=== PATIENT | female | born 1940 | race Caucasian/White ===

== ENCOUNTER → 2016-10-17 | Outpatient (CLI) | payer MEDICARE, OTHER ==
[~2016-10-17] MED LIST: ALPR.5T PO; ALPR0.5T PO; ASP325T PO; CEFD300C3 PO; CLIN-81 PO; CLPD75T PO; CPR500T PO; DEXL60CA5 PO; FURO40TA4 PO; HYDR-2890 PO; HYDR-3454 PO; HYDR-3714 PO; HYDR1TAB PO; LORA1TAB PO; MTR500T PO; ONDA4TAB8 PO; ONDN4T PO; PNT40TEC PO; POTA20TA15 PO; RABE20TA PO; RAMI10TA PO; RECLAST IV; RNT150T PO; ROSU5TAB PO; TRIMETHOBENZAMIDE PO; ZLP10T PO; [UNRECOGNIZED DRUG - CODE]
--- OUTSIDE RECORDS SUMMARY | 2016-10-17 10:54 | XMS REPORT | Continuity of Care Document ---
Author Author [facility] Organization [facility] Address Unknown Phone Unavailable Care Team Providers Care Production Planning Manager Name Role Phone David Jovel PCP [phone] Source Comments Some departments are not documenting in the electronic medical record. If you do not see the information that you expected, contact Release of Information in the Health Information Management department at [phone] for further assistance in locating additional records.[facility] Active Allergies and Adverse Reactions Allergen Noted Date Severity Reactions Comments Aggrenox 04/27/2015 High ANAPHYLAXIS Biaxin 04/27/2015 High ANAPHYLAXIS Compazine 04/27/2015 High ANAPHYLAXIS Reglan 04/27/2015 High ANAPHYLAXIS Current Medications Prescription Sig. Disp. Refills Start End Date Status Date albuterol-ipratropium Inhale 3 mL solution as Active (DUONEB) 0.5 mg-3 mg(2.5 directed four times mg base)/3 mL nebulizer daily. solution fluticasone (FLONASE) 50 Apply 2 Sprays to each Active mcg/actuation nasal spray nostril as directed daily. ALBUTEROL SULFATE (PROAIR Inhale by mouth. Active HFA IN) montelukast (SINGULAIR) Take 10 mg by mouth at Active 10 mg tablet bedtime daily. budesonide/formoterol Inhale 2 Puffs by mouth Active (SYMBICORT) 160/4.5 mcg twice daily. HFAA inhalation cetirizine (ZYRTEC) 10 mg Take 10 mg by mouth Active tablet daily. predniSONE (DELTASONE) 10 Take 10 mg by mouth Active mg tablet daily. ramipril (ALTACE) 10 mg Take 10 mg by mouth Active capsule daily. zolpidem (AMBIEN) 10 mg Take 10 mg by mouth at Active tablet bedtime as needed for Sleep. LORazepam (ATIVAN) 1 mg Take 1 mg by mouth every Active tablet 4 hours as needed for Nausea, Vomiting or Other.... rosuvastatin (CRESTOR) 5 Take 5 mg by mouth daily. Active mg tablet HYDROcodone/acetaminophen Take 1 Tab by mouth every Active (NORCO; VICODIN) 5-325 mg 4 hours as needed for tablet Pain clopiDOGrel (PLAVIX) 75 Take 75 mg by mouth Active mg tablet daily. pantoprazole DR Take 40 mg by mouth Active (PROTONIX) 40 mg tablet daily. zoledronic Administer 5 mg through Active acid/mannitol/water vein. (RECLAST) soln IVPB ALPRAZolam (XANAX) 0.5 mg Take 0.5 mg by mouth at Active tablet bedtime as needed. aspirin 325 mg tablet Take 325 mg by mouth Active daily. Active Problems Problem Noted Date Bronchiectasis (HCC) 05/01/2015 Lung disease, restrictive 05/01/2015 Social History Tobacco Use Types Packs/Day Years Used Date Never Smoker Smokeless Tobacco: Never Used Alcohol Use Drinks/Week oz/Week Comments No Last Filed Vital Signs Vital Sign Reading Time Taken Blood Pressure 106/61 05/01/2015 1:03 PM CDT Pulse 81 05/01/2015 1:03 PM CDT Temperature 36.7 C (98 F) 05/01/2015 1:03 PM CDT Respiratory Rate 16 05/01/2015 1:03 PM CDT Height 1.549 m (5' 1") 05/01/2015 1:03 PM CDT Weight 96.798 kg (213 lb 6.4 oz) 05/01/2015 1:03 PM CDT Body Mass Index 40.34 05/01/2015 1:03 PM CDT Oxygen Saturation 95% 05/01/2015 1:03 PM CDT Plan of Care Health Maintenance Due Date Last Done Comments Physical (Comprehensive) 1947 Exam Pertussis Vaccine 1953 Tetanus Vaccine 12/21/1959 Breast Cancer Screening 1982 Colorectal Cancer 1992 Screening Shingles Vaccine 2002 Osteoporosis Screening 12/21/2007 Prevnar/Pneumovax (#1) 12/21/2007 Influenza Vaccine 04/03/2016 Results from Last 3 Months Not on file
--- NOTE | 2016-10-17 11:45 | Diagnostic Imaging Report ---
3 views of the right ribs. INDICATION: Right rib pain. FINDINGS: No rib fracture is identified. There is subsegmental infiltrate and atelectasis in the right lung base. IMPRESSION: Subsegmental right basilar infiltrates and/or atelectasis. Dictated by: Dictated on workstation # [id number]
== END ==
LOC: RAD 10:50
PROVIDERS: ATTEND Nurse Practitioner Family
DX: R07.81 Pleurodynia (principal); R91.8 Other nonspecific abnormal finding of lung field
CPT/HCPCS: 71100

== ENCOUNTER → 2016-12-19 | Outpatient (CLI) | payer MEDICARE, OTHER ==
--- NOTE | 2016-12-19 11:58 | Diagnostic Imaging Report ---
PROCEDURE: MRI right joint lower extremity without contrast. TECHNIQUE: Multiplanar, multisequence non contrast-enhanced MRI of the right lower extremity was accomplished. INDICATION: Right knee pain. Please note that the dedicated knee coil did not fit the patient due to the knee size and an alternate larger coil was used. This would decrease the resolution on the images. FINDINGS: There is a tiny joint effusion. Small amount of fluid anterior to the patellar tendon is likely secondary to mild superficial prepatellar bursitis. The extensor mechanism is intact. The ACL and PCL are intact. No definite meniscus tear is seen. The MCL is slightly thickened probably related to old injury. The lateral collateral ligament complex components appear intact. There is no Louie's cyst. The muscle signal and bulk around the knee appear unremarkable. No significant bone marrow signal abnormality is noted. The articular cartilage demonstrates mild thinning in the lateral compartment and minimal thinning in the medial compartment. No significant cartilage thinning in the patellofemoral compartments. IMPRESSION: Tiny joint effusion. Suggestion of superficial infrapatellar bursitis. Dictated by: Dictated on workstation # [id number]
== END ==
LOC: RAD 09:41
PROVIDERS: ATTEND Family Medicine
DX: M79.0 Rheumatism, unspecified (principal)
CPT/HCPCS: 73721

== ENCOUNTER → 2017-03-16 | Outpatient (CLI) | payer MEDICARE, OTHER ==
--- NOTE | 2017-03-16 11:30 | Diagnostic Imaging Report ---
INDICATION: Right sciatica. Lumbar spine. AP lateral views of lumbar spine show normal vertebral body alignment. There is very slight scoliotic curvature of the upper lumbar spine convex the right. No compression fractures. There is disc space during at L1-L2, L2-L3 and L3-L4 and L5-S1. There are osteophyte forming at L1-L2, L2-L3, L3-L4. IMPRESSION: There are degenerative changes present in the lumbar spine. There are no acute abnormalities seen. Dictated by: Dictated on workstation # [id number]
== END ==
LOC: RAD 10:33
PROVIDERS: ATTEND Nurse Practitioner Family
DX: M47.816 Spondylosis without myelopathy or radiculopathy, lumbar region (principal)
CPT/HCPCS: 72100

== ENCOUNTER → 2017-03-23 | Outpatient (CLI) | payer MEDICARE, OTHER | LOC: RAD 12:24 | PROVIDERS: ATTEND Nurse Practitioner | DX: M23.321 Other meniscus derangements, posterior horn of medial meniscus, right knee (principal) ==

== ENCOUNTER → 2017-03-27 | Outpatient (CLI) | payer MEDICARE, OTHER ==
[~2017-03-27] MED LIST changes: +PRD20T PO
--- NOTE | 2017-03-27 10:02 | Diagnostic Imaging Report ---
EXAMINATION: Magnetic resonance imaging of the right knee without intravenous contrast DATE: 03/27/2017. COMPARISON: None. INDICATION: Right anterior knee pain. No history of trauma. TECHNIQUE: Multiplanar, multisequence non contrast enhanced MR imaging was accomplished. FINDINGS: MENISCI: There is some increased signal in the posterior horn of the medial meniscus consistent with mucoid degeneration. No definite meniscal tear demonstrated. The lateral meniscus is intact. LIGAMENTS AND TENDONS: The anterior and posterior cruciate ligaments are intact. The medial collateral ligament is intact. The iliotibial band, mid third lateral capsular ligament, fibular collateral ligament, biceps femoris tendon and conjoined tendon are intact. The quadriceps tendon and patella ligament are intact. JOINT: The articular cartilage surfaces are intact. Patellofemoral joint is in good alignment with good preservation of the articulating surfaces. The medial and lateral retinaculum are intact. There is a small joint effusion present. BONE: There is unremarkable bone marrow signal.Specifically, negative for fracture, osteomyelitis, osteonecrosis, or marrow replacing process. BURSAE AND SOFT TISSUES: No Bakers cyst. IMPRESSION: 1. There is small joint effusion present. 2. Mucoid degenerative changes noted in the posterior horn of the medial meniscus with no definite tear to the articulating surface though small tear cannot be excluded. 3. The patellofemoral joint appears normal. Dictated by: Dictated on workstation # [id number]
== END ==
LOC: RAD 08:17
PROVIDERS: ATTEND Nurse Practitioner
DX: M23.231 Derangement of other medial meniscus due to old tear or injury, right knee (principal); M25.461 Effusion, right knee
CPT/HCPCS: 73721

== ENCOUNTER 2017-05-25 09:26 | Emergency (ER) | payer MEDICARE, OTHER ==
[~2017-05-25] VITALS: Ht 152.4 cm; Wt 93.0 kg
[~2017-05-25 09:26] MED LIST changes: -PRD20T PO
--- NOTE | 2017-05-25 10:10 | ED Neurological Problem ---
General Chief Complaint: Neurological Problems Stated Complaint: HANDS NUMB,DIZZY Nursing Triage Note: c/o numbness in both hands. Right hand is worse than left. Onet 0400 yesterday morning. ROWLAND present but has headaches every other day chronically. Right lateral neck pain that is worse with movement reported. Nursing Sepsis Screen: No Definite Risk Source: patient Exam Limitations: no limitations History of Present Illness Time seen by provider: 10:00 Initial Comments Here with report of numbness to the hands with right hand being worse than the left. Started yesterday. She also has a headache that she has pretty much every other day or she states 15 days out of the month. This is an ongoing issue. Also is complaining of some mid neck pain and left shoulder pain. These are chronic as well but seemed to be worse. Denies any recent injury. Does have history of stroke and is on Plavix and aspirin. Does have multiple areas of degeneration in her spine and joints. Timing/Duration: 24 hours, constant Severity: mild Associated Symptoms: No confusion, No fever/chills, No muscle spasms, No numbness in legs/feet, paresthesia, No weakness Allergies and Home Medications Allergies Coded Allergies: prochlorperazine (Unverified Allergy, Unknown, 06/23/14) aspirin (Unverified Adverse Reaction, Unknown, 06/23/14) MIGRAINES clarithromycin (Unverified Adverse Reaction, Unknown, 06/23/14) VOMITING dipyridamole (Unverified Adverse Reaction, Unknown, 06/23/14) MIGRAINES metoclopramide HCl (Unverified Adverse Reaction, Unknown, 06/23/14) "JUMPY" Home Medications Alprazolam 0.5 Mg Tablet, 0.5 MG PO Q8H, (Reported) Aspirin 325 Mg Tablet, 325 MG PO DAILY, (Reported) Clopidogrel 75 Mg Tablet, 75 MG PO DAILY, (Reported) Furosemide 40 Mg Tablet, 1 EACH PO DAILY, (Reported) PATIENT TAKES PRN "WHEN I HAVE EXTRA FLUID" PATIENT TAKES WITH POTASSIUM 40MEQ Hydrocodone Bit/Acetaminophen 1 Each Tablet, 1 EACH PO Q8H PRN for MIGRAINE, ( Reported) Lorazepam 1 Mg Tab, 1 MG PO Q8H, (Reported) Ondansetron Hcl 4 Mg Tab, 4 MG PO Q6H PRN for MIGRAINE, (Reported) Pantoprazole Sod 40 Mg Tab, 40 MG PO BID, (Reported) Potassium Chloride 20 Meq Tab.prt.sr, 40 MEQ PO DAILY, (Reported) PATIENT TAKES PRN WITH LASIX Ramipril 10 Mg Tablet, 10 MG PO DAILY, (Reported) Rosuvastatin Calcium 5 Mg Tablet, 5 MG PO EVERY OTHER DAY, (Reported) Zolpidem Tartrate 10 Mg Tab, 10 MG PO HS PRN for SLEEP, (Reported) [Reclast] , 5 MG IV YEARLY, (Reported) [Trimethobenz] , 300 MG PO BID-TID PRN for MIGRAINE, (Reported) TAKE 2 TO 3 TIMES DAILY NEEDED FOR MIGRAINE Constitutional: see HPI, No chills, No fever Eyes: No Symptoms Reported Ears, Nose, Mouth, Throat: no symptoms reported Respiratory: no symptoms reported Cardiovascular: no symptoms reported Gastrointestinal: no symptoms reported Musculoskeletal: joint pain, neck pain Skin: No change in color Psychiatric/Neurological: Headache, Numbness, Denies Weakness All Other Systems Reviewed Negative Unless Noted: Yes Past Xplfnge-Xbdnrg-Ioctof Hx Patient Social History Alcohol Use: Denies Use Recreational Drug Use: No Smoking Status: Never a Smoker Recent Foreign Travel: No Contact w/Someone Who Travel: No Recent Infectious Disease Expo: No Immunizations Up To Date Tetanus Booster (TDap): Less than 5yrs Date of Pneumonia Vaccine: Sep 03, 2011 Surgeries History of Surgeries: Yes Respiratory History of Respiratory Disorde: Yes (pneumonia) Respiratory Disorders: Pneumonia Cardiovascular History of Cardiac Disorders: No Neurological History of Neurological Disord: Yes (stroke) Reproductive System Hx Reproductive Disorders: No Sexually Transmitted Disease: No HIV/AIDS: No Female Reproductive Disorders: Denies Genitourinary Genitourinary Disorders: UTI-Chronic Gastrointestinal History of Gastrointestinal Di: Yes (spastic bowel, diverticulitis, infective colitis Mar 2014) Musculoskeletal History of Musculoskeletal Dis: No Musculoskeletal Disorders: Osteoporosis Endocrine History of Endocrine Disorders: No Cancer History of Cancer: No Psychosocial History of Psychiatric Problem: No Integumentary History of Skin or Integumenta: No Blood Transfusions History of Blood Disorders: No Adverse Reaction to a Blood Tr: No Reviewed Nursing Assessment Reviewed/Agree w Nursing PMH: Yes Family Medical History Family Medial History: Asthma G8 SISTER Diabetes mellitus 19 FATHER FH: COPD (chronic obstructive pulmonary disease) 19 FATHER G8 BROTHER Hypertension 19 MOTHER G8 BROTHER G8 SISTER Thyroid disease G8 BROTHER Physical Exam Vital Signs Vital Sign - Last 12Hours 05/25/17 09:44 Temp 98.1 Pulse 70 Resp 16 B/P (MAP) 164/89 O2 Delivery Room Air Capillary Refill : Less Than 3 Seconds General Appearance: WD/WN, no apparent distress HEENT: PERRL/EOMI, pharynx normal Neck: full range of motion, supple, No tender lateral, No tender midline Respiratory: lungs clear, normal breath sounds Cardiovascular: regular rate, rhythm, no murmur Gastrointestinal: non tender, soft Back: normal inspection, no CVA tenderness, no vertebral tenderness Extremities: normal range of motion, other (tenderness to the lateral aspect of the left shoulder. 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 Full range of motion of both hands and wrists.) Neurologic/Psychiatric: alert, oriented x 3 Crainal Nerves: normal hearing, normal speech, PERRL Coordination/Gait: normal gait Motor/Sensory: no motor deficit, sensory deficit (reports decreased sensation to the hand as a hole on the right versus the left. No other sensation deficits noted on exam to the upper extremities, shoulders or neck.) Skin: normal color, warm/dry Progress/Results/Core Measures Results/Orders My Orders Orders - BA YANEZ MD Ct Head/Cervical Spine Wo (05/25/17 10:08) Vital Signs/I&O Vital Sign - Last 12Hours 05/25/17 09:44 Temp 98.1 Pulse 70 Resp 16 B/P (MAP) 164/89 O2 Delivery Room Air Blood Pressure Mean: 114 Progress Note : Progress Note Seen and evaluated. Findings more specific to Hand location but we will evaluate CT of neck given patient's history of degenerative disease. Due to frequent headaches, we will get CT of the head. This was discussed with the patient and she agrees. Monitor patient. 1055: CT results reviewed. Discussed with the patient. We will initiate wrist splint to the right and start her on prednisone for 5 days. She'll follow-up with her primary care physician for further evaluation. Discharged home with return precautions. Patient verbalize understanding instructions and agreement with plan. Diagnostic Imaging Diagonstic Imaging: CT Plain Films/CT/US/NM/MRI: c-spine, head Comments NAME: ALCIDES [facility] REC#: [id number] PT STATUS: REG ER : 1940 PHYSICIAN: BA YANEZ MD ADMIT DATE: 05/25/17/ER Draft Date of Exam:05/25/17 CT HEAD/CERVICAL SPINE WO PROCEDURE: CT head and CT cervical spine without contrast. TECHNIQUE: Multiple contiguous axial images were obtained through the brain and cervical spine without the use of intravenous contrast. Sagittal and coronal reformations through the cervical spine were then performed. INDICATION: Headache, neck pain. FINDINGS: CT head: There is no intracranial hemorrhage, brain edema, or mass effect. There is left periventricular centrum semiovale area of encephalomalacia suggestive of an old infarct. Background periventricular and deep white hypodensities compatible with chronic microvascular ischemic changes also seen. There is no hydrocephalus. No extra-axial fluid collection seen. The calvarium, the paranasal sinuses, and orbits visualized portions appear grossly unremarkable. CT cervical spine: The alignment of the posterior spinal line is satisfactory. There is reversal of the lordotic curvature likely positional. There is satisfactory alignment of the lateral masses of C1 and C2 and atlantooccipital joints. No widening of the predental space. The vertebral body heights are preserved. Along the posterior central aspect of C6 vertebral body there is posterior osteophyte formation which could relate to old injury or ossification of the posterior longitudinal ligament. This does not appear to significantly narrow the spinal canal however. There are posterior osteophytes at C5-C6 level and uncovertebral joint hypertrophy seen bilaterally. No significant foraminal stenosis seen at any level. No aggressive osseous lesion or bone destruction identified. The prevertebral soft tissues appear unremarkable. IMPRESSION: CT head: Chronic white matter ischemic changes. No intracranial hemorrhage. CT cervical spine: Degenerative changes at C5-C6 level. Dictated on workstation # [id number] Dict: 05/25/17 1042 Trans: 05/25/17 1053 YOANNA [id number] Interpreted by: NEHA ARIAS MD Electronically signed by: Departure Impression Impression: Primary Impression: Numbness of right hand Disposition: 01 HOME, SELF-CARE Condition: Stable Departure-Patient Inst. Decision time for Depature: 11:01 Referrals: LINDA SPEARS MD (PCP/Family) Primary Care Physician Patient Instructions: Carpal Tunnel Syndrome (DC) Add. Discharge Instructions: All discharge instructions reviewed with patient and/or family. Voiced understanding. Follow-up with your Dr. in a few days for recheck. Return for worse pain, weakness, numbness, or other concerns as needed. Take medications as directed. Scripts Prednisone (Prednisone) 20 Mg Tab 40 MG PO DAILY, #10 TAB 0 Refills Prov: BA YANEZ MD 05/25/17 BA YANEZ MD May 25, 2017 10:10
--- NOTE | 2017-05-25 10:53 | Diagnostic Imaging Report ---
PROCEDURE: CT head and CT cervical spine without contrast. TECHNIQUE: Multiple contiguous axial images were obtained through the brain and cervical spine without the use of intravenous contrast. Sagittal and coronal reformations through the cervical spine were then performed. INDICATION: Headache, neck pain. FINDINGS: CT head: There is no intracranial hemorrhage, brain edema, or mass effect. There is left periventricular centrum semiovale area of encephalomalacia suggestive of an old infarct. Background periventricular and deep white hypodensities compatible with chronic microvascular ischemic changes also seen. There is no hydrocephalus. No extra-axial fluid collection seen. The calvarium, the paranasal sinuses, and orbits visualized portions appear grossly unremarkable. CT cervical spine: The alignment of the posterior spinal line is satisfactory. There is reversal of the lordotic curvature likely positional. There is satisfactory alignment of the lateral masses of C1 and C2 and atlantooccipital joints. No widening of the predental space. The vertebral body heights are preserved. Along the posterior central aspect of C6 vertebral body there is posterior osteophyte formation which could relate to old injury or ossification of the posterior longitudinal ligament. This does not appear to significantly narrow the spinal canal however. There are posterior osteophytes at C5-C6 level and uncovertebral joint hypertrophy seen bilaterally. No significant foraminal stenosis seen at any level. No aggressive osseous lesion or bone destruction identified. The prevertebral soft tissues appear unremarkable. IMPRESSION: CT head: Chronic white matter ischemic changes. No intracranial hemorrhage. CT cervical spine: Degenerative changes at C5-C6 level. Dictated by: Dictated on workstation # [id number]
[2017-05-25] MEDS ORDERED: PRD20T PO (11:02)
[2017-05-25 11:10] VITALS: BP 152/80
== END 2017-05-25 11:10 | disposition home or self-care (01) ==
LOC: EDUNIT# 09:26 → ER 09:28
DX: N20.2 Calculus of kidney with calculus of ureter (principal); M81.0 Age-related osteoporosis without current pathological fracture; Z79.82 Long term (current) use of aspirin; Z87.01 Personal history of pneumonia (recurrent); Z86.73 Personal history of transient ischemic attack (TIA), and cerebral infarction without residual deficits; Z87.19 Personal history of other diseases of the digestive system
CPT/HCPCS: 70450; 72125; 99283

== ENCOUNTER 2017-10-28 08:39 | Outpatient (CLI) | payer MEDICARE, OTHER ==
[~2017-10-28] VITALS: Ht 152.4 cm; Wt 93.0 kg
[~2017-10-28 08:39] MED LIST changes: +PRD20T PO
[2017-10-28] MEDS ORDERED: ASPI-933 PO (08:58)
[2017-10-28] MEDS ORDERED: RAMI10CA35 PO (08:58)
[2017-10-28] MEDS ORDERED: ONDA4TAB11 PO (08:58)
[2017-10-28] MEDS ORDERED: TRAZ-28 PO (08:58)
[2017-10-28] MEDS ORDERED: MONT10TA24 PO (08:58)
[2017-10-28] MEDS ORDERED: CARV25TA PO (08:58)
[2017-10-28] MEDS ORDERED: PANT40TA3 PO (08:58)
[2017-10-28] MEDS ORDERED: ALPR0.5T7 PO (08:58)
[2017-10-28] MEDS ORDERED: CETI10TA17 PO (08:58)
[2017-10-28] MEDS ORDERED: CLOP75TA28 PO (08:58)
[2017-10-28] MEDS ORDERED: TIOT4MIS5 IH (09:03)
[2017-10-28] MEDS ORDERED: BUDE10.2 IH (09:03)
[2017-10-28 09:07] VITALS: BP 149/85
== END 2017-10-28 10:34 | disposition home or self-care (01) ==
LOC: PREOP 08:39
PROVIDERS: ATTEND Orthopaedic Surgery
DX: Z01.818 Encounter for other preprocedural examination (principal); Z11.2 Encounter for screening for other bacterial diseases; M23.203 Derangement of unspecified medial meniscus due to old tear or injury, right knee; M94.261 Chondromalacia, right knee
CPT/HCPCS: 87081

== ENCOUNTER 2017-11-04 07:22 | Day surgery (SDC) | payer MEDICARE, OTHER ==
--- NOTE | 2017-10-26 12:56 | HISTORY AND PHYSICAL ---
DATE OF SERVICE: 11/04/2017 ADMISSION HISTORY AND PHYSICAL DATE OF ADMISSION: 11/04/2017 REASON FOR ADMISSION: This will be for preadmission history and physical for outpatient surgery on 11/04/2017 for right knee arthroscopy. HISTORY OF PRESENT ILLNESS: The patient is a 76-year-old female with progressively worsening right knee pain, catching, locking and swelling. She has undergone treatment with injections, physical therapy, activity modifications and anti-inflammatories without relief. 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 She reports functional impairment and due to failure to improve with conservative measures, the patient has elected to proceed with surgical intervention. REVIEW OF SYSTEMS: No chest pain. No shortness of breath. No dysuria. PAST MEDICAL HISTORY: Allergic rhinitis, hypertension pharyngitis, tachycardia. PAST SURGICAL HISTORY: Cervical polyp excision, breast lump excision. SOCIAL HISTORY: The patient denies alcohol use. She denies tobacco use. FAMILY HISTORY: Significant for asthma, diabetes. PRIMARY CARE PROVIDER: David Jovel MD MEDICATIONS: Toprol, Plavix, Altace, Protonix, Zyrtec, Singulair, calcium, Symbicort, Xanax, Vicodin, Zofran, ProAir, Flonase, Ambien, aspirin, hydrocodone. ALLERGIES: To SULFA. PHYSICAL EXAMINATION: GENERAL: The patient is well-developed, well-nourished, in no acute distress. HEENT: Normocephalic, atraumatic. Pupils are equal, round, reactive. Oropharynx is clear. NECK: Supple with no lymphadenopathy. LUNGS: Clear to auscultation bilaterally. HEART: Regular rate and rhythm. ABDOMEN: Soft, nontender, nondistended. EXTREMITIES: The right knee demonstrates a moderate effusion. She has patellofemoral crepitus and pain with patellar loading. She ambulates with an antalgic gait. She is tender along the medial joint line and has pain medially with Shelli's. No varus valgus laxity. Negative anterior and posterior drawer. 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 PLAN: Right knee arthroscopy, partial medial meniscectomy and chondroplasty. The risks, benefits, options, ramifications and recovery have been discussed at length with the patient. She understands and wishes to proceed. Job ID: [id number] DocumentID: [id number] Dictated Date: 10/26/2017 11:38:27 Pest Management Supervisor Date: 10/26/2017 12:55:49 Dictated By: CLINT BEST MD
[~2017-11-04] VITALS: Ht 152.4 cm; Wt 93.0 kg
[2017-11-04 07:22] VITALS: BP 187/83
[~2017-11-04 07:22] MED LIST changes: +ALPR0.5T7 PO; +ASPI-933 PO; +BUDE10.2 IH; +CARV25TA PO; +CETI10TA17 PO; +CLOP75TA28 PO; +MONT10TA24 PO; +ONDA4TAB11 PO; +PANT40TA3 PO; +RAMI10CA35 PO; +TIOT4MIS5 IH; +TRAZ-28 PO
[2017-11-04] MEDS ORDERED: LACTATED RINGERS 1,000 ML IV PRN ×2 (07:27→07:55)
[2017-11-04] MEDS ORDERED: ceFAZolin INJECTION 1,000 MG in NS (IVPB) 100 ML IV ONE (07:30)
[2017-11-04] MEDS ORDERED: morphine PF (DURAMORPH) 10 MG/10 ML AMP ONE (07:57)
[2017-11-04] MEDS ORDERED: BUPIVACAINE 0.25% 30 ML (SENSORCAINE) VIAL ONE (07:57)
[2017-11-04] MEDS ORDERED: MIDAZOLAM 2 MG/2 ML (VERSED) VIAL IV ONE (08:00)
[2017-11-04] MEDS ORDERED: ONDANSETRON 4 MG/2 ML (SDV) Z0FRAN IV ONE (08:00)
[2017-11-04] MEDS ORDERED: FAMOTIDINE 20MG/2ML IV (PEPCID) ONE (08:09)
[2017-11-04] MEDS ORDERED: proPOfol 200 MG/20 ML (DIPRIVAN) VIAL IV ONE (08:23)
[2017-11-04] MEDS ORDERED: DEXAMETHASONE 10 MG/ML (DECADRON) 1 ML VIAL ONE (08:23)
[2017-11-04] MEDS ORDERED: ONDANSETRON 4 MG/2 ML (SDV) Z0FRAN ONE (08:23)
[2017-11-04] MEDS ORDERED: LIDOCAINE PF 2% 5 ML (XYLOCAINE) VIAL ONE (08:23)
[2017-11-04] MEDS ORDERED: fentaNYL INJECTION 100 MCG/2 ML AMP ONE (08:24)
[2017-11-04] MEDS ORDERED: MIDAZOLAM 2 MG/2 ML (VERSED) VIAL ONE (08:25)
--- NOTE | 2017-11-04 09:31 | Progress Note-Pre Operative ---
Pre-Operative Progress Note H&P Reviewed The H&P was reviewed, patient examined and no changes noted. Date Seen by Provider: Nov 04, 2017 Time Seen by Provider: : Date H&P Reviewed: Nov 04, 2017 Time H&P Reviewed: : Pre-Operative Diagnosis: right knee medial meniscus tear and chondromalacia CLINT BEST MD Nov 04, 2017 09:31
--- NOTE | 2017-11-04 09:32 | Progress Note-Post Operative ---
Post-Operative Progess Note Surgeon (s)/Vending Stand Supervisor (s) Surgeon CLINT BEST MD Vending Stand Supervisor: Zoran Garcia Pre-Operative Diagnosis right knee medial meniscus tear and chondromalacia Post-Operative Diagnosis right knee medial and lateral meniscus tears and chondromalacia of the medial femoral condyle Procedure & Operative Findings Date of Procedure 11/04/17 Procedure Performed/Findings right knee arthroscopic partial medial and lateral meniscectomies and chondroplasty of the medial femoral condyle Anesthesia Type GETA Estimated Blood Loss Estimated blood loss (mL): minimal Specimens/Packing Specimens Removed none Packing: none CLINT BEST MD Nov 04, 2017 09:32
[2017-11-04] MEDS ORDERED: SEVOFLURANE (ULTANE) 15 ML INHAL SOLN ONE (09:37)
[2017-11-04] MEDS ORDERED: HYDROcodone/APAP 7.5 MG/325 MG (LORTAB, LORCET PLUS) TABLET PO PRN ×2 (09:45→12:15)
[2017-11-04] MEDS ORDERED: meTOprolol 5 MG/5 ML (LOPRESSOR) VIAL ONE (10:13)
[2017-11-04] MEDS ORDERED: ONDANSETRON 4 MG/2 ML (SDV) Z0FRAN IVP PRN (10:15)
[2017-11-04] MEDS ORDERED: morphine INJ 10 MG/ML 1ML (SYR OR VIAL) IVP PRN (10:15)
[2017-11-04 11:10] VITALS: BP 161/67
[2017-11-04] MEDS ORDERED: HYDROcodone/APAP 7.5 MG/325 MG (LORTAB, LORCET PLUS) TABLET PO ONE (11:35)
[2017-11-04 11:55] VITALS: BP 158/75
[2017-11-04] MEDS ORDERED: ONDN4T PO (12:36)
[2017-11-04] MEDS ORDERED: HYDR-3816 PO (12:36)
[2017-11-04 12:45] VITALS: BP 147/72
[2017-11-04 13:05] VITALS: BP 147/72
--- NOTE | 2017-11-04 13:15 | OPERATIVE REPORT ---
DATE OF SERVICE: 11/04/2017 PREOPERATIVE DIAGNOSES: 1. Right knee medial meniscal tear. 2. Right knee chondromalacia of the medial femoral condyle. POSTOPERATIVE DIAGNOSES: 1. Right knee medial meniscal tear. 2. Right knee chondromalacia of the medial femoral condyle. 3. Right knee lateral meniscal tear. PROCEDURES: 1. Right knee arthroscopic partial medial meniscectomy. 2. Right knee arthroscopic partial lateral meniscectomy. 3. Right knee arthroscopic chondroplasty of the medial femoral condyle. SURGEON: Luciano Best MD [employer] MANAGER: PARISH Whitehead, who assisted throughout the procedure and closed the incisions. ANESTHESIA: General endotracheal by Brandee Buckner CRNA. TOURNIQUET TIME: Not applicable. ESTIMATED BLOOD LOSS: Minimal. DRAINS: None. COMPLICATIONS: None. POSTOPERATIVE PLAN: Routine arthroscopy protocol. The patient was transferred to the recovery room awake and in stable condition. STATEMENT OF MEDICAL NECESSITY: The patient is a 76-year-old female with complaints of right medial knee pain, catching, locking and swelling. She is tender along the medial joint line. She had tenderness along the medial femoral condyle. She had pain medially with Shelli's. She had tried rest, injections and anti-inflammatories without relief. Due to functional impairment and failure to improve with conservative measures, the patient elected to proceed with surgical intervention. Examination under anesthesia revealed range of motion of 0/0/130 with negative Jace, negative anterior and posterior drawer. No varus valgus laxity, negative pivot shift. Arthroscopic findings, the patella and trochlea demonstrated no gross chondral abnormalities. The medial and lateral gutters were clear. The medial compartment demonstrated a radial tear at the posterior horn/body junction involving approximately 20% of the junction. In addition, there was a grade 2 chondral flap on the central weightbearing portion of the femoral condyle and a 10 x 10 area. The ACL and PCL were intact. The lateral compartment demonstrated a radial tear of the posterior horn involving approximately 30% of the posterior horn of the meniscus. After risks and benefits of procedure were discussed and questions were answered and informed consent was signed and placed on chart, the operative site was confirmed in the preoperative holding area initialed by the surgeon. The patient was transported to the operating room and after adequate levels of general endotracheal anesthetic were obtained, a timeout was called confirming the operative site. An examination under anesthesia was performed with the above findings noted. The right lower extremity was then prepped and draped in the usual sterile fashion. The knee joint was injected with 60 mL of fluid. A standard inferolateral portal was placed with the arthroscope under direct visualization, inferior medial portal was created. The menisci and cruciates were carefully probed with the above findings noted. The unstable chondral flaps on the medial femoral condyle were debrided, shaved back to a stable edge. The posterior horn/body junction was debrided with a shaver and a biter removing approximately 20% of the posterior horn and this was carefully probed with no further tearing or instability noted. The scope was then redirected into the lateral compartment where the lateral meniscal tear was debrided. The shaver and the biter removed approximately one-third of the posterior horn. This was carefully probed with no further tearing or instability noted. The knee was copiously irrigated. Portal sites were closed with 4-0 nylon in simple interrupted fashion. The knee was injected with Duramorph. Portal sites were infiltrated with plain Marcaine. Soft dressing was applied and the patient was transferred to the recovery room awake and in stable condition. Job ID: [id number] DocumentID: [id number] Dictated Date: 11/04/2017 10:04:56 Rn Discharge Date: 11/04/2017 13:14:51 Dictated By: LUCIANO BEST MD
--- NOTE | 2017-11-04 13:34 | Physical Therapy Ortho Eval ---
PT Orthopedic Evaluation Type of Surgery Knee Scope WBAT, right side Prior Level of Function Locomotion (Upon Admit): Independent Established Durable Medical Eq: Front Wheeled Walker, Straight Cane, Crutches Patient states she used a single point cane on occasion. Subjective Subjective Patient in bed pre tx, agrees to PT, has 8/10 pain in her right knee. Entry Into Home: Stairs With Railing Steps Into Home: 3 Objective Objective right knee flexion 60 degrees, extension +5 degrees Motor Control Motor Control: Motor Control WNL Strength NT Transfer Transfers (B, C, W/C) (FIM): 5 Gait Gait Assistive Device: FWW Right Lower Extremity: Right Weight Bearing Status RLE: Weight Bearing/Tolerated Gait (FIM): 5 Distance: 150' Gait Level of Assist: 5 Summary/Comments Patient also went up and down 1 step using a rolling walker with CGA and cues for foot placement. Treatment Rendered Treatment: Therapeutic Exercises, Gait Train, Step Train Exercise Instruction: Quad Sets, Heel Slides, Ankle Pumps Assessment/Goals Goal Time Frame: 1 Visit Plan Treatment Plan: Discharge PT/Family Agrees to Plan: Yes Time Time In: 1200 Time Out: 1220 Total Billed Treatment Time: 20 Billed Treatment Time 1 visit EVL 20' Yes PT/OT Therapy GCodes Therapy Functional Limitation: Physical Therapy Test(s)/Tool used to determine: Level of Assistance Scale Functional Limitation-Current Charge Code: MOBCUR Modifier: CI Functional Limitation-Goal Charge Code: MOBGOAL Modifier: CI Functional Limitation-D/C Charge Codes: MOBDC Modifier: CI ALEJANDRO MOSQUEDA PT Nov 04, 2017 13:34
--- NOTE | 2017-11-04 14:54 | Anesthesia-General Post-Op ---
General Patient Condition Mental Status/LOC: Same as Preop Cardiovascular: Satisfactory Nausea/Vomiting: Absent Respiratory: Satisfactory Pain: Controlled Complications: Absent Post Op Complications Complications None Follow Up Care/Instructions Patient Instructions None needed. Anesthesia/Patient Condition Patient Condition Patient is doing well, no complaints, stable vital signs, no apparent adverse anesthesia problems. No complications reported per nursing. DAVID BUSTAMANTE CRNA Nov 04, 2017 14:54
== END 2017-11-04 13:05 | disposition home or self-care (01) ==
LOC: SDC 07:22
PROVIDERS: ATTEND Orthopaedic Surgery
DX: M23.8X1 Other internal derangements of right knee (principal); M94.261 Chondromalacia, right knee; I10 Essential (primary) hypertension; J30.2 Other seasonal allergic rhinitis; Z79.899 Other long term (current) drug therapy; Z88.2 Allergy status to sulfonamides; Z86.73 Personal history of transient ischemic attack (TIA), and cerebral infarction without residual deficits; F41.9 Anxiety disorder, unspecified

== ENCOUNTER 2017-12-04 19:08 | Emergency (ER) | payer MEDICARE, OTHER ==
[~2017-12-04] VITALS: Ht 154.9 cm; Wt 88.9 kg
[~2017-12-04 19:08] MED LIST changes: +HYDR-3816 PO
[2017-12-04] MEDS ORDERED: RT-ALBUINH IH (19:47)
[2017-12-04] MEDS ORDERED: FLUT9.9S NS (19:47)
[2017-12-04] MEDS ORDERED: KETOROLAC 30 MG/ML VIAL IVP ONE (20:00)
--- NOTE | 2017-12-04 20:05 | ED Lower Extremity ---
General Chief Complaint: Lower Extremity Stated Complaint: R LEG PAIN/SWELLING Nursing Triage Note: Patient c/o right lower extremity pain that began on 11/26/17 and has become progressively worse. She advises she had a knee scope done on 11/04/17 no complications. Pt. also advises that she was seen by Dr. Jelani WATSON on thursday and was given a prescription for bactrim. Nursing Sepsis Screen: No Definite Risk Source: patient Exam Limitations: no limitations History of Present Illness Date Seen by Provider: December 04, 2017 Time Seen by Provider: 19:52 Initial Comments PT ARRIVES VIA POV FROM HOME PT HAD RIGHT KNEE SCOPE WITH REPAIR OF MENISCUS TEARS ON 11/04/[address] BEST SA[address] DR. BEST ON 11/16 AND WAS DOING WELL PT STATES SHE WAS DOING VERY WELL WITH ONLY MINIMAL PAIN AND NO SWELLING, UNTIL 11/26/17 SINCE THEN SHE HAS HAD INCREASED PAIN MOSTLY TO RIGHT KNEE, BUT WITH INCREASED SWELLING ALL AROUND KNEE AND NOW ALSO TO RIGHT LOWER LEG NO INJURY OR UNUSUAL ACTIVITIES HAS BEEN USING A CANE PT TOOK 1 HYDROCODONE AT 0400 THIS AM, SHE COULD NOT SLEEP DUE TO PAIN ATTEMPTED TO FOLLOW UP WITH DR. BEST THIS WEEK , BUT ALREADY HAS SCHEDULED POST OP FOLLOW UP APPOINTMENT ON Thursday12/07/17 SEEN BY INDUSTRIAL COOK AT DR. SPEARS'S ON Thursday12/02/17 AND WAS GIVEN RX FOR BACTRIM PT STATES IT HAS NOT BEEN RED, WARM OR HAD DRAINAGE. PT HAS NOT BEEN RUNNING FEVER NO CHEST PAIN OR SHORTNESS OF BREATH HAS SOME SLIGHT SWELLING TO LEFT LOWER LEG, BUT NO PAIN ON LEFT. NO PARESTHESIAS OR MOTOR DEFICITS PT STATES ICE TO AREA CAUSES SEVERE PAIN PT TAKES PLAVIX + ASPIRIN FOR HISTORY OF CVA PCP: DR. SPEARS ORTHOPEDIC SURGEON: DR. BEST Allergies and Home Medications Allergies Coded Allergies: prochlorperazine (Unverified Allergy, Mild, JITTERS/AGITATION, 10/28/17) aspirin (Unverified Adverse Reaction, Mild, MIGRAINES, 10/28/17) clarithromycin (Unverified Adverse Reaction, Mild, VOMITING, 10/28/17) dipyridamole (Unverified Adverse Reaction, Mild, MIGRAINES, 10/28/17) metoclopramide HCl (Unverified Adverse Reaction, Mild, JITTERS/AGITATION, 10/28/17) "JUMPY" Home Medications Albuterol Sulfate 1 Puff Puff, 2 PUFF IH Q4H, (Reported) 1 PUFF = 90 MCG Alprazolam 0.5 Mg Tablet, 0.5 MG PO DAILY, (Reported) Aspirin 81 Mg Tablet.dr, 81 MG PO DAILY, (Reported) Budesonide/Formoterol Fumarate 10.2 Gm Hfa.aer.ad, 2 PUFF IH BID, (Reported) Carvedilol 25 Mg Tablet, 6.25-25 MG PO BID, (Reported) TAKES BETWEEN 6.25-25MG BID DEPENDING ON BLOOD PRESSURE. SOMETIMES DOESNT TAKE ANY AT ALL. Cetirizine HCl 10 Mg Tablet, 10 MG PO DAILY, (Reported) Clopidogrel Bisulfate 75 Mg Tablet, 75 MG PO DAILY, (Reported) Fluticasone Propionate 9.9 Ml [place].susp, 1 SPRAY NS DAILY, (Reported) 1 SPRAY EACH NARE DAILY Montelukast Sodium 10 Mg Tablet, 10 MG PO DAILY, (Reported) Ondansetron 4 Mg Tab.rapdis, 4 MG PO Q8H PRN for NAUSEA/VOMITING-1ST LINE, ( Reported) Pantoprazole Sodium 40 Mg Tablet.dr, 40 MG PO BID, (Reported) Ramipril 10 Mg Capsule, 10 MG PO DAILY, (Reported) Tiotropium [place] 4 Gm Mist.inhal, 1 PUFF IH BID, (Reported) Trazodone HCl 50 Mg Tablet, 100 MG PO HS, (Reported) Patient Home Medication List Home Medication List Reviewed: Yes Constitutional: no symptoms reported; No fever Respiratory: no symptoms reported Cardiovascular: see HPI, edema Gastrointestinal: no symptoms reported Genitourinary: no symptoms reported Musculoskeletal: see HPI Skin: no symptoms reported Psychiatric/Neurological: No Symptoms Reported; Denies Numbness, Denies Paresthesia, Denies Tingling Past Ffrvbty-Goehhk-Piwsyj Hx Patient Social History Alcohol Use: Denies Use Recreational Drug Use: No Smoking Status: Never a Smoker Recent Foreign Travel: No Contact w/Someone Who Travel: No Recent Infectious Disease Expo: No Recent Hopitalizations: No Physical Abuse: No Sexual Abuse: No Immunizations Up To Date Tetanus Booster (TDap): Less than 5yrs Date of Pneumonia Vaccine: Mar 10, 2016 Date of Influenza Vaccine: May 18, 2017 Seasonal Allergies Seasonal Allergies: Yes Past Medical History Surgeries: Yes (FX LEFT ARM, RIGHT KNEE ARTHROSCOPY 1993 AND 11/04/17 BY ) Section, Gallbladder, Orthopedic, Tonsillectomy Respiratory: Yes (PNEUMONIA) Chronic Bronchitis Cardiac: Yes Hypertension Neurological: Yes Neuropathy, Stroke Reproductive Disorders: No Female Reproductive Disorders: Denies Sexually Transmitted Disease: No HIV/AIDS: No UTI-Chronic Gastrointestinal: Yes (spastic bowel) Chronic Diarrhea, Polyps Musculoskeletal: No Osteoporosis Endocrine: No Loss of Vision: Bilateral Hearing Impairment: Denies Cancer: No Psychosocial: Yes (WITH MIGRAINES) Anxiety Nursing Suicide Risk Score: 0 Integumentary: Yes ( A CHILD) Eczema Blood Disorders: No Adverse Reaction/Blood Tranf: No (N/A) Family Medical History Asthma G8 SISTER Diabetes mellitus 19 FATHER FH: COPD (chronic obstructive pulmonary disease) 19 FATHER G8 BROTHER Hypertension 19 MOTHER G8 BROTHER G8 SISTER Thyroid disease G8 BROTHER Physical Exam Vital Signs Vital Signs - First Documented 12/04/17 19:38 Temp 97.8 Pulse 70 Resp 14 B/P (MAP) 191/98 (129) Pulse Ox 98 O2 Delivery Room Air Capillary Refill : Less Than 3 Seconds General Appearance: no apparent distress, obese Cardiovascular: normal peripheral pulses, regular rate, rhythm, no murmur Respiratory: normal breath sounds Hips: bilateral hip normal inspection Legs: bilateral leg other (MODERATE SWELLING TO RIGHT KNEE AND PROXIMAL HALF OF RIGHT LOWER LEG. NO SWELLING TO RIGHT ANKLE OR FOOT. TRACE EDEMA TO LEFT LOWER LEG. MODERTATE TENDERNESS TO PALPATION OF RIGHT KNEE, AND MINIMAL ROM DUE TO PAIN, UNABLE TO ASSESS LIGAMENT LAXITY DUE TO PAIN AND SWELLING. DISTAL MOTOR/SENSORY/VASCULAR INTACT. SURGICAL SITES ARE WELL HEALED WITH NO SIGNS OF INFECTION) Ankles: bilateral ankle normal inspection Feet: bilateral foot normal inspection Neurologic/Tendon: normal sensation, normal motor functions, normal tendon functions Neurologic/Psychiatric: access liaison II-XII nml as tested, no motor/sensory deficits, alert, normal mood/affect, oriented x 3 Skin: normal color, warm/dry; No ecchymosis Progress/Results/Core Measures Results/Orders Lab Results Laboratory Tests Test 12/04/17 20:22 Range/Units White Blood Count 4.9 4.3-11.0 10^3/uL Red Blood Count 4.37 4.35-5.85 10^6/uL Hemoglobin 12.5 11.5-16.0 G/DL Hematocrit 38 35-52 % Mean Corpuscular Volume 88 80-99 FL Mean Corpuscular Hemoglobin 29 25-34 PG Mean Corpuscular Hemoglobin Concent 33 32-36 G/DL Red Cell Distribution Width 14.7 H 10.0-14.5 % Platelet Count 213 130-400 10^3/uL Mean Platelet Volume 9.5 7.4-10.4 FL Neutrophils (%) (Auto) 58 42-75 % Lymphocytes (%) (Auto) 28 12-44 % Monocytes (%) (Auto) 10 0-12 % Eosinophils (%) (Auto) 3 0-10 % Basophils (%) (Auto) 0 0-10 % Neutrophils # (Auto) 2.8 1.8-7.8 X 10^3 Lymphocytes # (Auto) 1.4 1.0-4.0 X 10^3 Monocytes # (Auto) 0.5 0.0-1.0 X 10^3 Eosinophils # (Auto) 0.2 0.0-0.3 10^3/uL Basophils # (Auto) 0.0 0.0-0.1 10^3/uL Prothrombin Time 12.7 12.2-14.7 SEC INR Comment 0.9 0.8-1.4 Activated Partial Thromboplast Time 23 L 24-35 SEC D-Dimer 0.52 H 0.00-0.49 UG/ML Sodium Level 139 135-145 MMOL/L Potassium Level 5.1 H 3.6-5.0 MMOL/L Chloride Level 107 98-107 MMOL/L Carbon Dioxide Level 25 21-32 MMOL/L Anion Gap 7 5-14 MMOL/L Blood Urea Nitrogen 17 7-18 MG/DL Creatinine 1.03 0.60-1.30 MG/DL Estimat Glomerular Filtration Rate 52 BUN/Creatinine Ratio 17 Glucose Level 100 70-105 MG/DL Calcium Level 8.8 8.5-10.1 MG/DL Total Bilirubin 0.3 0.1-1.0 MG/DL Aspartate Amino Transf (AST/SGOT) 34 5-34 U/L Alanine Aminotransferase (ALT/SGPT) 17 0-55 U/L Alkaline Phosphatase 77 40-136 U/L B-Type Natriuretic Peptide 54.3 <100.0 PG/ML Total Protein 7.1 6.4-8.2 GM/DL Albumin 4.0 3.2-4.5 GM/DL My Orders Orders - POLY PLASENCIA DO Saline Lock/Iv-Start (12/04/17 19:57) BNP (12/04/17 19:57) Cbc With Automated Diff (12/04/17 19:57) Comprehensive Metabolic Panel (12/04/17 19:57) Fibrin Degradation Products (12/04/17 19:57) Protime With Inr (12/04/17 19:57) Partial Thromboplastin Time (12/04/17 19:57) Knee, Right, 3 Views (12/04/17 19:57) Us Venous Lower Ext Rt (12/04/17 19:57) Ketorolac Injection (Toradol Injection) (12/04/17 20:00) Cecil Bandage (12/04/17 21:11) Knee Immobilizer (12/04/17 21:11) Medications Given in ED Current Medications Medications Dose Ordered Sig/Concepcion Route Start Time Stop Time Status Last Admin Dose Admin Ketorolac Tromethamine 30 mg ONCE ONCE IVP 12/04/17 20:00 12/04/17 20:01 DC 12/04/17 20:20 30 MG Vital Signs/I&O 12/04/17 19:38 Temp 97.8 Pulse 70 Resp 14 B/P (MAP) 191/98 (129) Pulse Ox 98 O2 Delivery Room Air Blood Pressure Mean: 129 Diagnostic Imaging Comments XRAYS RIGHT KNEE--NO ACUTE PROCESS ULTRASOUND RIGHT LOWER LEG--NO DVT OR ACUTE PROCESS PER RADIOLOGIST REPORTS @ 2108 Reviewed: Reviewed by Me Departure Impression Primary Impression: Pain and swelling of right knee Additional Impression: S/P RECENT RIGHT KNEE ARTHROSCOPY Disposition: HOME, SELF-CARE Condition: Stable Departure-Patient Inst. Referrals: LINDA SPEARS MD (PCP/Family) Primary Care Physician CLINT BEST MD Patient Instructions: Knee Sprain (DC) Add. Discharge Instructions: CECIL WRAP, KNEE IMMOBILIZER AND ELEVATE LEG MUCH POSSIBLE USE WALKER AT ALL TIMES TAKE YOUR HYDROCODONE EVERY 4 HOURS NEEDED FOR PAIN FOLLOW UP WITH DR. BEST ON THURSDAY SCHEDULED All discharge instructions reviewed with patient and/or family. Voiced understanding. POLY PLASENCIA DO December 04, 2017 20:05
[2017-12-04 20:30] LABS: BASOPHILS % (AUTO) 0 % (0-10); EOSINOPHILS # (AUTO) 0.2 10^3/uL (0.0-0.3); EOSINOPHILS % (AUTO) 3 % (0-10); HEMATOCRIT 38 % (35-52); HEMOGLOBIN 12.5 G/DL (11.5-16.0); LYMPHOCYTES # (AUTO) 1.4 X 10^3 (1.0-4.0); LYMPHOCYTES % (AUTO) 28 % (12-44); MEAN CORPUSCULAR HEMOGLOBIN 29 PG (25-34); MEAN CORPUSCULAR HGB CONC 33 G/DL (32-36); MEAN CORPUSCULAR VOLUME 88 FL (80-99); MEAN PLATELET VOLUME 9.5 FL (7.4-10.4); MONOCYTES # (AUTO) 0.5 X 10^3 (0.0-1.0); MONOCYTES % (AUTO) 10 % (0-12); NEUTROPHILS # (AUTO) 2.8 X 10^3 (1.8-7.8); NEUTROPHILS % (AUTO) 58 % (42-75); PLATELET COUNT 213 10^3/uL (130-400); RED BLOOD COUNT 4.37 10^6/uL (4.35-5.85); RED CELL DISTRIBUTION WIDTH 14.7 % (10.0-14.5); WHITE BLOOD COUNT 4.9 10^3/uL (4.3-11.0)
[2017-12-04 20:40] LABS: INR 0.9 (0.8-1.4); PROTHROMBIN TIME PATIENT 12.7 SEC (12.2-14.7)
[2017-12-04 20:49] LABS: BILIRUBIN,TOTAL 0.3 MG/DL (0.1-1.0); CALCIUM 8.8 MG/DL (8.5-10.1); CREATININE SERUM 1.03 MG/DL (0.60-1.30); POTASSIUM 5.1 MMOL/L (3.6-5.0); TOTAL PROTEIN 7.1 GM/DL (6.4-8.2)
--- NOTE | 2017-12-04 20:49 | Diagnostic Imaging Report ---
INDICATION: Pain and swelling FINDINGS: There is no fracture, dislocation, loose body or acute appearing abnormality. IMPRESSION: No acute appearing abnormality Dictated by: Dictated on workstation # [id number]
[2017-12-04 20:50] LABS: FIBRIN DEGRADATION PRODUCTS 0.52 UG/ML (0.00-0.49)
--- NOTE | 2017-12-04 21:05 | Diagnostic Imaging Report ---
PROCEDURE: US right lower extremity venous. TECHNIQUE: Multiple real-time grayscale images were obtained over the right lower extremity in various projections. Additional duplex Doppler and color Doppler images were also obtained. INDICATION: Leg pain. FINDINGS: Femoral popliteal deep venous system reveals normal color Doppler flow and normal compressibility. There is normal response to augmentation and Valsalva. No deep or superficial venous thrombus. IMPRESSION: Normal negative unilateral right lower extremity venous Doppler and ultrasound exam. Dictated by: Dictated on workstation # [id number]
[2017-12-04 21:28] VITALS: BP 158/83
== END 2017-12-04 21:29 | disposition home or self-care (01) ==
LOC: EDUNIT# 19:08 → ER 19:09
DX: M25.561 Pain in right knee (principal); M25.461 Effusion, right knee; F41.9 Anxiety disorder, unspecified; I10 Essential (primary) hypertension; G43.909 Migraine, unspecified, not intractable, without status migrainosus; Z87.2 Personal history of diseases of the skin and subcutaneous tissue; Z87.59 Personal history of other complications of pregnancy, childbirth and the puerperium; Z87.19 Personal history of other diseases of the digestive system; Z86.73 Personal history of transient ischemic attack (TIA), and cerebral infarction without residual deficits; Z90.89 Acquired absence of other organs; Z79.82 Long term (current) use of aspirin; Z79.01 Long term (current) use of anticoagulants; Z79.51 Long term (current) use of inhaled steroids; Z88.1 Allergy status to other antibiotic agents; Z88.8 Allergy status to other drugs, medicaments and biological substances
CPT/HCPCS: 36415; 73562; 80053; 83880; 85025; 85379; 85610; 85730; 96374

== ENCOUNTER → 2018-02-18 | Outpatient (CLI) | payer MEDICARE, OTHER ==
[~2018-02-18] MED LIST changes: +CATHETER FLUSH 10 ML SYR IV PRN; +FLUT9.9S NS; +REGADENOSON 0.4 MG/5 ML SYR (LEXISCAN) IV ONE; +RT-ALBUINH IH; +TRAZ-189 PO; -TRAZ-28 PO
[2018-02-18 08:21] VITALS: BP 244/93
--- NOTE | 2018-02-18 21:35 | STRESS TEST ---
DATE OF SERVICE: 02/18/2018 RESTING AND POST REGADENOSON TECHNETIUM 99M TETROFOSMIN SPECT CT IMAGING ORDERING PHYSICIAN: Dr. Snyder. PRIMARY CARE PHYSICIAN: Dr. Jovel. CLINICAL DIAGNOSIS: Chest discomfort. Baseline images were carried out after injection of 10.64 mCi of technetium-99m Tetrofosmin. This was followed by 0.4 mg of regadenoson and 32.9 mCi of technetium-99m Tetrofosmin for stress imaging. The electrocardiogram showed sinus rhythm at baseline. The electrocardiogram did not change significantly with the regadenoson infusion. There was incomplete right bundle branch block throughout the study. Review of images at rest and following stress does not indicate any significant perfusion defects consistent with significant myocardial ischemia or infarction. Gated images showed normal global left ventricular systolic function and normal regional wall motion. Left ventricular ejection fraction is calculated to be 73%. Left ventricular end diastolic volume is 54 mL. TID is absent (1.01). CONCLUSIONS: 1. No evidence of any significant myocardial ischemia or infarction on this study. 2. Normal regional wall motion. 3. Normal global left ventricular systolic function with a calculated ejection fraction of 73%. Job ID: [id number] DocumentID: [id number] Dictated Date: 02/18/2018 18:00:04 Director Trade Date: 02/18/2018 21:34:40 Dictated By: PHYLLIS SNYDER MD, MA, FACP, FACC,
== END ==
LOC: CARD 06:55
PROVIDERS: ATTEND Internal Medicine Cardiovascular Disease
DX: I10 Essential (primary) hypertension (principal); R07.89 Other chest pain; E66.8 Other obesity; Z86.73 Personal history of transient ischemic attack (TIA), and cerebral infarction without residual deficits
CPT/HCPCS: 78452; 93017

== ENCOUNTER → 2018-02-22 | Outpatient (CLI) | payer MEDICARE, OTHER ==
[~2018-02-22] MED LIST changes: -CATHETER FLUSH 10 ML SYR IV PRN; -REGADENOSON 0.4 MG/5 ML SYR (LEXISCAN) IV ONE
== END ==
LOC: CARD 10:52
PROVIDERS: ATTEND Internal Medicine Cardiovascular Disease
DX: R07.89 Other chest pain (principal); I10 Essential (primary) hypertension; E66.9 Obesity, unspecified; Z86.79 Personal history of other diseases of the circulatory system
CPT/HCPCS: 93306

== ENCOUNTER → 2018-04-19 | Outpatient (CLI) | payer MEDICARE, OTHER ==
--- NOTE | 2018-04-19 11:36 | Diagnostic Imaging Report ---
CLINICAL INDICATION: Patient has low back pain. No known injury. EXAM: MRI of the lumbar spine performed without IV contrast. Sagittal T2, sagittal T1, sagittal T2 fat-sat, and axial T2. COMPARISON: MRI of the lumbar spine performed without IV contrast dated 01/04/2013. FINDINGS: There is straightening of the lumbar spine posture. There is no acute lumbar spine fracture. There are Modic type I degenerative signal changes involving the L4-L5 endplates. There are Modic type II degenerative signal changes anteriorly at the L1-L2, L2-L3, and L3-L4 levels. There is no significant paraspinal soft tissue abnormality. The visualized distal thoracic spinal cord, conus medullaris, and cauda equina nerve roots are unremarkable. The conus medullaris tip is seen at the L1-L2 intervertebral level. There is a small cyst involving the anterior aspect of the mid right kidney, which measures up to 9 mm. L1-L2: There is progression of diffuse disc bulge with slight increase of the posterior disc herniation component. There is otfg-au-ovxlqzyz central canal narrowing which has slightly progressed. There is mild left neural foramen narrowing again seen. Chronic Schmorl's nodes are again seen. L2-L3: There is slight progression of the diffuse disc bulge with increase in the posterior disc herniation component, especially in the left foraminal region. There is now tfpw-aj-rygunkvx left neural foramen narrowing which has progressed. There is isop-hf-ewkkvbcq central canal narrowing which has increased. There is mild right neural foramen narrowing which is stable. Chronic Schmorl's nodes are again seen in the endplates with moderate loss of intervertebral disc height. L3-L4: There is slight progression of the diffuse disc bulge with increased disc herniation component extending into the foraminal regions and posteriorly. There is bxyq-my-qqvbrzad central canal narrowing which has slightly progressed. There is now severe right neural foramen narrowing and kgdt-zp-yykypwvo left neural foramen narrowing which have slightly progressed. L4-L5: There is mild diffuse disc bulge with slightly increased size of the right paracentral disc protrusion/herniation. There is severe right neural foramen narrowing which has progressed. There is slight progression of the lzro-cw-mqgnxjmk left neural foramen narrowing. There is mild central canal narrowing which has slightly progressed. There is moderate loss of intervertebral disc height. L5-S1: There is slight progression of the diffuse disc bulge with increased herniation component in the left foraminal region. There is moderate left neural foramen narrowing which has progressed and mild right neural foramen narrowing which is stable. There is moderate loss of intervertebral disc height. IMPRESSION: There is interval progression of multilevel lumbar spine degenerative disc disease, as described above. Dictated by: Dictated on workstation # [id number]
== END ==
LOC: RAD 07:48
PROVIDERS: ATTEND Nurse Practitioner Family
DX: M48.061 Spinal stenosis, lumbar region without neurogenic claudication (principal); M99.73 Connective tissue and disc stenosis of intervertebral foramina of lumbar region; M51.17 Intervertebral disc disorders with radiculopathy, lumbosacral region; M51.46 Schmorl's nodes, lumbar region; M47.26 Other spondylosis with radiculopathy, lumbar region; N28.1 Cyst of kidney, acquired
CPT/HCPCS: 72148

== ENCOUNTER 2018-05-18 07:37 | Day surgery (SDC) | payer MEDICARE, OTHER ==
[~2018-05-18] VITALS: Ht 152.4 cm; Wt 93.9 kg
[2018-05-18] MEDS ORDERED: LIDOCAINE 1% INJ 20 ML 20 ML VIAL ONE (07:51)
[2018-05-18 08:04] VITALS: BP 141/66
[2018-05-18 10:00] VITALS: BP 138/64
--- NOTE | 2018-05-18 16:50 | OPERATIVE REPORT ---
DATE OF SERVICE: 05/18/2018 PREOPERATIVE DIAGNOSIS: Palpitations. POSTOPERATIVE DIAGNOSIS: Palpitations. PROCEDURE: Implantable loop recorder implantation. INDICATIONS: The patient is a 77-year-old lady, who has infrequent palpitations that are quite bothersome to her. Implantable loop recorder implantation was carried out today after having obtained an informed consent. DESCRIPTION OF PROCEDURE: [facility]. The left prepectoral area was prepared and draped in usual sterile fashion. Lidocaine 1% was used for local anesthesia. The tools provided with the implantable loop recorder were used to make a subcutaneous pocket anterior to the left 4th intercostal space in which the device was placed. The device is 77 Pieces Reveal LINQ device with serial #[id number]. The patient tolerated the procedure well. The edges of the pocket were closed using Dermabond and Steri-Strips. Job ID: [id number] DocumentID: [id number] Dictated Date: 05/18/2018 09:28:32 Genetic Engineer Date: 05/18/2018 16:49:41 Dictated By: PHYLLIS DENNEY MD, MA, FACP, FACC,
== END 2018-05-18 10:00 | disposition home or self-care (01) ==
LOC: CATH 07:37
PROVIDERS: ATTEND Internal Medicine Cardiovascular Disease
DX: R00.2 Palpitations (principal); I10 Essential (primary) hypertension; I65.21 Occlusion and stenosis of right carotid artery; J42 Unspecified chronic bronchitis; E66.9 Obesity, unspecified; Z68.38 Body mass index [BMI] 38.0-38.9, adult; Z86.73 Personal history of transient ischemic attack (TIA), and cerebral infarction without residual deficits; Z79.82 Long term (current) use of aspirin; Z79.899 Other long term (current) drug therapy
CPT/HCPCS: 33282

== ENCOUNTER 2018-06-01 20:40 | Outpatient (CLI) | payer MEDICARE, OTHER | END 2018-06-02 06:46 | disposition home or self-care (01) | LOC: SLEEP 20:40 | PROVIDERS: ATTEND Nurse Practitioner Family | DX: G47.10 Hypersomnia, unspecified (principal); R00.2 Palpitations; R06.83 Snoring | CPT/HCPCS: 95810 ==

== ENCOUNTER → 2018-07-15 | Outpatient (CLI) | payer MEDICARE, OTHER ==
--- NOTE | 2018-07-15 13:02 | Diagnostic Imaging Report ---
INDICATION: Abnormal vaginal bleeding. Pelvic sonography is performed with transabdominal and transvaginal views. The uterus measures 6.7 x 3.7 x 3.0 cm. There is a 1.9 x 1.9 x 1.5 cm probable fibroid lesion anteriorly in the midline as well as a 1.2 x 1.3 x 1.0 cm calcified lesion to the left of midline which is likely a fibroid lesion as well. Endometrium appears thickened for age measuring 7 mm. Neither ovary is visualized. There is an area of shadowing in the right side of the adnexa which may due to overlying bowel but is nonspecific. There is no free fluid. IMPRESSION: Probable fibroid lesions in the uterus as above. Endometrium is thickened for age measuring 7 mm. Endometrial hyperplasia or neoplasm should be excluded. Neither ovary can be visualized. There is an area of shadowing in the right adnexa which may due to bowel but cannot be well evaluated. Consider CT if clinically warranted. Dictated by: Dictated on workstation # [id number]
--- NOTE | 2018-07-15 18:40 | Diagnostic Imaging Report ---
INDICATION: Screening. EXAMINATION: Bilateral digital screening mammogram with CAD. The current study was also evaluated with a Computer Aided Detection (CAD) system. COMPARISON: Prior examination from 08/27/2010 and 03/27/2009. FINDINGS: There are scattered fibroglandular densities. There are a few benign type calcifications. There is no dominant mass, spiculated lesion or suspicious calcification identified. The skin, nipples and axillae are unremarkable. IMPRESSION: Unremarkable bilateral screening mammograms. ACR BI-RADS Category 2: Benign findings. Result letter will be mailed to the patient. Note: At least 10% of breast cancer is not imaged by mammography. Dictated by: Dictated on workstation # [id number]
== END ==
LOC: RAD 10:39
PROVIDERS: ATTEND Obstetrics & Gynecology
DX: Z12.31 Encounter for screening mammogram for malignant neoplasm of breast (principal); N95.0 Postmenopausal bleeding; N88.2 Stricture and stenosis of cervix uteri
CPT/HCPCS: 76830; 76856; 77067

== ENCOUNTER → 2018-10-07 | Outpatient (CLI) | payer MEDICARE, OTHER ==
--- NOTE | 2018-10-07 13:04 | Diagnostic Imaging Report ---
INDICATION: Cough, snoring, sleep disorder. TECHNIQUE: Two-view chest at 10:38 a.m. CORRELATION STUDY: 07/12/2015. FINDINGS: Heart size is borderline enlarged but stable. Loop recorder device has been placed. Vasculature appears stable. Asymmetrically elevated right diaphragm with likely areas of fibrosis about the right lung base and perihilar region generally stable. Minimal scarring suggested about the left lung base. No suggestion for new infiltrate. IMPRESSION: 1. Relatively stable chest with likely areas of fibrosis particularly involving the right perihilar and basilar region. Dictated by: Dictated on workstation # [id number]
== END ==
LOC: RAD 10:29
PROVIDERS: ATTEND Nurse Practitioner Family
DX: J40 Bronchitis, not specified as acute or chronic (principal); J30.9 Allergic rhinitis, unspecified; J18.9 Pneumonia, unspecified organism; G47.10 Hypersomnia, unspecified
CPT/HCPCS: 71046

== ENCOUNTER → 2018-11-22 | Outpatient (CLI) | payer MEDICARE, OTHER ==
[2018-11-22 09:06] LABS: CALCIUM 9.5 MG/DL (8.5-10.1); CREATININE SERUM 1.51 MG/DL (0.60-1.30); MAGNESIUM 2.4 MG/DL (1.8-2.4); POTASSIUM 4.8 MMOL/L (3.6-5.0)
== END ==
LOC: LAB 08:29
PROVIDERS: ATTEND Internal Medicine Cardiovascular Disease
DX: M79.89 Other specified soft tissue disorders (principal); I10 Essential (primary) hypertension; I48.0 Paroxysmal atrial fibrillation; Z86.79 Personal history of other diseases of the circulatory system
CPT/HCPCS: 36415; 80048; 83735

== ENCOUNTER 2018-12-09 22:13 | Observation (INO) | payer MEDICARE, OTHER ==
[~2018-12-09] VITALS: Ht 154.9 cm; Wt 95.5 kg
--- NOTE | 2018-12-09 22:15 | NUR ---
ARRIVED PER EMS. PT IN UP TO COMMODE. VITALS SIGNS TAKEN.
[2018-12-09 22:20] VITALS: BP 186/91
--- NOTE | 2018-12-09 22:35 | NUR ---
DR CONLEY NOTIFIED OF PT ARRIVAL AND VITAL SIGNS AT THIS TIME. ORDERS FOR ADMISSION RECEIVED.
[2018-12-09 22:40] VITALS: BP 186/91
--- OUTSIDE RECORDS SUMMARY | 2018-12-09 22:44 | XMS REPORT | Clinical Summary ---
Author Author [facility] Organization [facility] Address Unknown Phone Unavailable Care Team Providers Care Binding Folder Machine Name Role Phone Zulma Santoyo MD Unavailable David Jovel MD PCP Source Comments Some departments are not documenting in the electronic medical record. If you do not see the information that you expected, contact Release of Information in the Health Information Management department at [phone] for further assistance in locating additional records.[facility] Allergies Comments Active Allergy Reactions Severity Noted Date Aspirin-Dipyridamole ANAPHYLAXIS High 04/27/2015 Clarithromycin ANAPHYLAXIS High 04/27/2015 Prochlorperazine ANAPHYLAXIS High 04/27/2015 Edisylate Metoclopramide ANAPHYLAXIS High 04/27/2015 Medications End Date Status Medication Sig Dispensed Refills Start Date Active albuterol-ipratropium Inhale 3 mL 0 (DUONEB) 0.5 mg-3 mg(2.5 solution as mg base)/3 mL nebulizer directed four solution times daily. Active fluticasone (FLONASE) 50 Apply 2 0 mcg/actuation nasal spray Sprays to each nostril as directed daily. Active ALBUTEROL SULFATE (PROAIR Inhale by 0 HFA IN) mouth. Active montelukast (SINGULAIR) Take 10 mg by 0 10 mg tablet mouth at bedtime daily. Active budesonide/formoterol Inhale 2 0 (SYMBICORT) 160/4.5 mcg Puffs by HFAA inhalation mouth twice daily. Active cetirizine (ZYRTEC) 10 mg Take 10 mg by 0 tablet mouth daily. Active predniSONE (DELTASONE) 10 Take 10 mg by 0 mg tablet mouth daily. Active ramipril (ALTACE) 10 mg Take 10 mg by 0 capsule mouth daily. Active zolpidem (AMBIEN) 10 mg Take 10 mg by 0 tablet mouth at bedtime as needed for Sleep. Active LORazepam (ATIVAN) 1 mg Take 1 mg by 0 tablet mouth every 4 hours as needed for Nausea, Vomiting or Other.... Active rosuvastatin (CRESTOR) 5 Take 5 mg by 0 mg tablet mouth daily. Active HYDROcodone/acetaminophen Take 1 Tab by 0 (NORCO; VICODIN) 5-325 mg mouth every 4 tablet hours as needed for Pain Active clopiDOGrel (PLAVIX) 75 Take 75 mg by 0 mg tablet mouth daily. Active pantoprazole DR Take 40 mg by 0 (PROTONIX) 40 mg tablet mouth daily. Active zoledronic Administer 5 0 acid/mannitol/water mg through (RECLAST) soln IVPB vein. Active ALPRAZolam (XANAX) 0.5 mg Take 0.5 mg 0 tablet by mouth at bedtime as needed. Active aspirin 325 mg tablet Take 325 mg 0 by mouth daily. Active Problems Problem Noted Date Bronchiectasis 05/01/2015 Lung disease, restrictive 05/01/2015 Family History Medical History Relation Name Comments COPD Brother COPD Father Blood Clots Mother Asthma Sister Relation Name Status Comments Brother Father Mother Sister Social History Date Tobacco Use Types Packs/Day Years Used Never Smoker Smokeless Tobacco: Never Used Alcohol Use Drinks/Week oz/Week Comments No Sex Assigned at Date Recorded Not on file Industry Job Start Date Occupation Not on file Not on file Not on file Travel End Travel History Travel Start No recent travel history available. Last Filed Vital Signs Time Taken Vital Sign Reading 05/01/2015 1:03 PM CDT Blood Pressure 106/61 05/01/2015 1:03 PM CDT Pulse 81 05/01/2015 1:03 PM CDT Temperature 36.7 C (98 F) 05/01/2015 1:03 PM CDT Respiratory Rate 16 05/01/2015 1:03 PM CDT Oxygen Saturation 95% - Inhaled Oxygen - Concentration 05/01/2015 1:03 PM CDT Weight 96.8 kg (213 lb 6.4 oz) 05/01/2015 1:03 PM CDT Height 154.9 cm (5' 1") 05/01/2015 1:03 PM CDT Body Mass Index 40.32 Plan of Treatment Health Maintenance Due Date Last Done Comments PHYSICAL (COMPREHENSIVE) 1949 EXAM DTAP/TDAP VACCINES (1 - 1960 Tdap) COLORECTAL CANCER 1992 SCREENING SHINGLES RECOMBINANT 1992 VACCINE (1 of 2) OSTEOPOROSIS 12/21/2007 SCREENING/MONITORING PNEUMONIA (PCV13/PPSV23) 12/21/2007 VACCINES (1 of 2 - PCV13) INFLUENZA VACCINE 05/03/2019 Results Not on filefrom Last 3 Months Insurance Type Payer Benefit Subscriber ID Effective Phone Address Plan / Dates Group Medicare MEDICARE MEDICARE xxxxxxxxxx 2007-P PART A AND resent B HMO xxxxxxxxxxx 2011- FOR LIFE Present Advance Directives Patient has advance care planning documents on file. For more information, please contact: [facility] [address] [facility] [place] [address]
--- OUTSIDE RECORDS SUMMARY | 2018-12-09 22:46 | XMS REPORT | Continuity of Care Document ---
Author Organization Unknown Address Unknown Allergies Active Description Code Type Severity Reaction Onset Reported/Identified Relationship to Patient Clinical Status Yes AGGRENOX AGGRENOX SEVERE Yes BIAXIN BIAXIN SEVERE Yes COMPAZINE COMPAZINE SEVERE Yes REGLAN REGLAN SEVERE Yes AGGRENOX SEVERE OTHER Yes BIAXIN SEVERE GI PROBLEMS - NAUSEA Yes COMPAZINE SEVERE OTHER Yes REGLAN SEVERE OTHER Yes aspirin [id number] Drug Allergy Unknown N/A 06/23/2014 Yes clarithromycin [id number] Drug Allergy Unknown N/A 06/23/2014 Yes dipyridamole [id number] Drug Allergy Unknown N/A 06/23/2014 Yes metoclopramide HCl [id number] Drug Allergy Unknown N/A 06/23/2014 Yes prochlorperazine [id number] Drug Allergy Unknown N/A 06/23/2014 Yes aspirin [id number] Drug Allergy Mild MIGRAINES 10/28/2017 Yes clarithromycin [id number] Drug Allergy Mild VOMITING 10/28/2017 Yes dipyridamole [id number] Drug Allergy Mild MIGRAINES 10/28/2017 Yes metoclopramide HCl [id number] Drug Allergy Mild JITTERS/AGITATI 10/28 Yes prochlorperazine [id number] Drug Allergy Mild JITTERS/AGITATI 10/28/2017 Medications Medication Packaging Start Date Stop Date Route Dosage Sig CLONIDINE TAB 0.1 MG (CATAPRES) MG 02/14/2018 02/14/2018 ONCE&0100 ALPRAZOLAM TAB 0.5 MG (XANAX) MG 02/16/2018 PRN ONCE KETOROLAC VIAL INJ 15 MG/CC (TORADOL VIAL) MG 02/16/2018 02/16/2018 ONCE&1527 ENALAPRIL VIAL INJ 1.25 MG/CC (VASOTEC VIAL) MG 02/16/2018 02/16/2018 PRN ONCE CLONIDINE TAB 0.1 MG (CATAPRES) MG 02/16/2018 02/16/2018 ONCE&1740 Problems Date Dx Coded Attending Type Code Diagnosis Diagnosed By 01/12/2011 Ot 729.5 PAIN IN LIMB 05/10/2013 LOGAN BLACK DO Ot 530.10 ESOPHAGITIS NOS 05/10/2013 LOGAN BLACK DO Ot 535.50 UNSP GASTRITIS GASTRODUODENITIS W/O ME 02/14/2014 LINDA SPEARS MD Ot 789.03 ABDOMINAL PAIN, RIGHT LOWER QUADRANT 03/25/2014 LINDA SPEARS MD Ot 008.00 INTESTINAL INFECTION DUE TO UNSPECIFIED 03/25/2014 LINDA SPEARS MD Ot 272.4 HYPERLIPIDEMIA NEC/NOS 03/25/2014 LINDA SPEARS MD Ot 276.8 HYPOPOTASSEMIA 03/25/2014 LINDA SPEARS MD Ot 285.9 ANEMIA NOS 03/25/2014 LINDA SPEARS MD Ot 401.9 HYPERTENSION NOS 03/25/2014 LINDA SPEARS MD Ot 530.81 ESOPHAGEAL REFLUX 03/25/2014 LINDA SPEARS MD Ot V12.54 PERSONAL HX OF TIA, CEREBRAL INFARCTION 06/23/2014 Ot 789.03 06/27/2014 TESS DOMINGUEZ DO Ot 401.9 06/27/2014 TESS DOMINGUEZ DO Ot 486 06/27/2014 TESS DOMINGUEZ DO Ot 518.0 06/27/2014 TESS DOMINGUEZ DO Ot 530.81 06/27/2014 TESS DOMINGUEZ DO Ot 564.9 06/27/2014 TESS DOMINGUEZ DO Ot 733.00 06/27/2014 TESS DOMINGUEZ DO Ot 787.91 06/27/2014 TESS DOMINGUEZ DO Ot V12.79 06/27/2014 TESS DOMINGUEZ DO Ot V58.62 06/27/2014 TESS DOMINGUEZ DO Ot 401.9 HYPERTENSION NOS 06/27/2014 TESS DOMINGUEZ DO Ot 486 PNEUMONIA, ORGANISM NOS 06/27/2014 TESS DOMINGUEZ DO Ot 518.0 PULMONARY COLLAPSE 06/27/2014 TESS DOMINGUEZ DO Ot 530.81 ESOPHAGEAL REFLUX 06/27/2014 ANGELICATESS COMBS DO Ot 558.9 NONINF GASTROENTERIT NEC 06/27/2014 TESS DOMINGUEZ DO Ot 564.9 FUNCT DIS INTESTINE NOS 06/27/2014 TESS DOMINGUEZ DO Ot 733.00 OSTEOPOROSIS NOS 06/27/2014 TESS DOMINGUEZ DO Ot 787.91 06/27/2014 TESS DOMINGUEZ DO Ot V12.79 PERSONAL HISTORY OTH SPEC DIGESTIVE SYST 06/27/2014 TESS DOMINGUEZ DO Ot V58.62 ENCOUNT FOR LONG-TERM(CURRENT) USE OF AN 08/02/2014 TESS DOMINGUEZ DO Ot 486 08/02/2014 ANGELICA TESS HOLT Ot 782.3 08/02/2014 ANGELICA TESS HOLT Ot 786.09 08/11/2014 ANGELICA TESS HOLT Ot 486 08/11/2014 ANGELICA TESS HOLT Ot 782.3 08/11/2014 ANGELICA TESS HOLT Ot 786.09 08/23/2014 TORY FERRO, LINDA Adams Ot 787.91 09/14/2014 Ot 784.0 09/14/2014 Ot V12.59 09/14/2014 Ot 573.9 09/14/2014 Ot 789.01 09/14/2014 Ot 789.03 09/14/2014 Ot 553.3 09/14/2014 Ot 573.8 09/14/2014 Ot 789.00 09/14/2014 Ot 729.5 09/14/2014 Ot V12.51 09/14/2014 Ot V12.54 09/14/2014 Ot 719.45 09/14/2014 Ot 721.3 09/14/2014 Ot 722.52 09/14/2014 Ot 786.2 09/14/2014 TORY FERRO, LINDA Adams Ot 789.03 09/14/2014 Ot 789.03 09/14/2014 ANIBAL FERRO, YVROSE Youssef Ot 008.00 09/14/2014 YVROSE BARNETT MD Ot 276.8 09/14/2014 TORY FERRO, LINDA Adams Ot 562.10 09/14/2014 TORY FERRO, LINDA Adams Ot 573.9 09/14/2014 TORY FERRO, LINDA R Ot 793.11 09/14/2014 ANGELICA TESS Ty Ot 486 09/14/2014 ANGELICA TESS Ty Ot 782.3 09/14/2014 ANGELICA TESS HOLT Ot 786.09 09/14/2014 TORY FERRO, LINDA R Ot 787.91 09/28/2014 TORY FERRO, LINDA R Ot 787.91 11/20/2014 TORY FERRO, LINDA R Ot 787.91 DIARRHEA 12/18/2014 ANGELICA HOLT TESS Karson Ot 486 PNEUMONIA, ORGANISM NOS 12/18/2014 ANGELICA TESS Ty Ot 518.0 PULMONARY COLLAPSE 12/30/2014 ANGELICA HOLT TESS Ty Ot 486 03/07/2015 JAMAL BELTRE PANEL BUILDER Ot 486 03/30/2015 JAMAL BELTRE PANEL BUILDER Ot 486 05/08/2015 JAMAL BELTRE PANEL BUILDER Ot J18.9 05/08/2015 JAMAL BELTRE PANEL BUILDER Ot J40 05/08/2015 JAMAL BELTRE PANEL BUILDER Ot R06.83 05/08/2015 JAMAL BELTRE PANEL BUILDER Ot J18.9 05/08/2015 JAMAL BELTRE PANEL BUILDER Ot J40 05/08/2015 JAMAL BELTRE PANEL BUILDER Ot R06.83 05/28/2015 JAMAL BELTRE PANEL BUILDER Ot J18.9 05/28/2015 JAMAL BELTRE PANEL BUILDER Ot J40 05/28/2015 JAMAL BELTRE PANEL BUILDER Ot R06.83 06/19/2015 JAMAL BELTRE PANEL BUILDER Ot J18.9 06/19/2015 JAMAL BELTRE PANEL BUILDER Ot J40 06/19/2015 JAMAL BELTRE PANEL BUILDER Ot R06.83 07/12/2015 Ot 784.0 07/12/2015 Ot V12.59 07/12/2015 Ot 573.9 07/12/2015 Ot 789.01 07/12/2015 Ot 789.03 07/12/2015 Ot 553.3 07/12/2015 Ot 573.8 07/12/2015 Ot 789.00 07/12/2015 Ot 729.5 07/12/2015 Ot V12.51 07/12/2015 Ot V12.54 07/12/2015 Ot 719.45 07/12/2015 Ot 721.3 07/12/2015 Ot 722.52 07/12/2015 Ot 786.2 07/12/2015 TORY FERRO, LINDA R Ot 724.02 07/12/2015 TORY FERRO, LINDA R Ot 729.5 07/12/2015 BLACK LOGAN Ot V72.84 07/12/2015 TORY FERRO, LINDA R Ot 458.9 07/12/2015 TORY FERRO, LINDA R Ot 789.03 07/12/2015 Ot 789.03 07/12/2015 ANIBAL FERRO, YVROSE Youssef Ot 008.00 07/12/2015 ANIBAL FERRO, YVROSE Youssef Ot 276.8 07/12/2015 TORY FERRO, LINDA R Ot 562.10 07/12/2015 TORY FERRO, LINDA R Ot 573.9 07/12/2015 TORY FERRO, LINDA R Ot 793.11 07/12/2015 TESS DOMINGUEZ DO Ot 486 07/12/2015 TESS DOMINGUEZ DO Ot 782.3 07/12/2015 TESS DOMINGUEZ DO Ot 786.09 07/12/2015 TESS DOMINGUEZ DO M Ot 486 07/12/2015 TORY FERRO, LINDA R Ot 787.91 07/12/2015 TESS DOMINGUEZ DO Ot V72.84 07/12/2015 JAMAL BELTRE APRN Ot 486 07/12/2015 JAMAL BELTRE APRN Ot J18.9 07/12/2015 JAMAL BELTRE PANEL BUILDER Ot J40 07/12/2015 JAMAL BELTRE PANEL BUILDER Ot R06.83 08/02/2015 TORY FERRO, LINDA R Ot R05 08/29/2015 TORY FERRO, LINDA R Ot R05 09/14/2015 Ot 573.9 09/14/2015 Ot 789.01 09/14/2015 Ot 789.03 09/14/2015 Ot 553.3 09/14/2015 Ot 573.8 09/14/2015 Ot 789.00 09/14/2015 Ot 729.5 09/14/2015 Ot V12.51 09/14/2015 Ot V12.54 09/14/2015 Ot 719.45 09/14/2015 Ot 721.3 09/14/2015 Ot 722.52 09/14/2015 Ot 786.2 09/14/2015 TORY FERRO, LINDA R Ot 789.03 09/14/2015 Ot 789.03 09/14/2015 ANIBAL FERRO, YVROSE Youssef Ot 008.00 09/14/2015 ANIBAL FERRO, YVROSE A Ot 276.8 09/14/2015 TORY FERRO, LINDA R Ot 562.10 09/14/2015 TORY FERRO, LINDA R Ot 573.9 09/14/2015 TORY FERRO, LINDA R Ot 793.11 09/14/2015 TESS DOMINGUEZ DO Ot 486 09/14/2015 TESS DOMINGUEZ DO Ot 782.3 09/14/2015 TESS DOMINGUEZ DO Ot 786.09 09/14/2015 TESS DOMINGUEZ DO M Ot 486 09/14/2015 TORY FERRO, LINDA R Ot 787.91 09/14/2015 TESS DOMINGUEZ DO M Ot V72.84 09/14/2015 JAMAL BELTRE APRN Ot 486 09/14/2015 JAMAL BELTRE APRN Ot J18.9 09/14/2015 JAMAL BELTRE PANEL BUILDER Ot J40 09/14/2015 JAMAL BELTRE APRN Ot R06.83 09/14/2015 TORY FERRO, LINDA R Ot R05 09/14/2015 TORY FERRO, LINDA R Ot R60.9 09/14/2015 JOHANNA GLEASON DO Ot M79.661 09/14/2015 JOHANNA GLEASON DO Ot M79.89 09/28/2015 TORY FERRO, LINDA R Ot R60.9 10/03/2015 JOHANNA GLEASON DO Ot M79.661 10/03/2015 JOHANNA GLEASON DO Ot M79.89 10/23/2015 JOHANNA GLEASON DO Ot M79.661 10/23/2015 JOHANNA GLEASON DO Ot M79.89 05/01/2016 Ot 729.5 PAIN IN LIMB 05/01/2016 Ot V12.51 HX-VENOUS THROMBOSIS EMBOLISM 05/01/2016 Ot V12.54 PERSONAL HX OF TIA, CEREBRAL INFARCTION 05/01/2016 Ot 719.45 JOINT PAIN- PELVIS 05/01/2016 Ot 721.3 LUMBOSACRAL SPONDYLOSIS 05/01/2016 Ot 722.52 LUMB/ LUMBOSAC DISC DEGEN 05/01/2016 Ot 786.2 COUGH 05/01/2016 TORY FERRO, LINDA R Ot 724.02 SPINAL STENOSIS, LUMBAR REG, W/OUT NEURO 05/01/2016 TORY FERRO, LINDA R Ot 729.5 PAIN IN LIMB 05/01/2016 SOFIA HOLT LOGAN Edu Ot V72.84 EXAM PRE-OPERATIVE NOS 05/01/2016 TORY FERRO, LINDA R Ot 458.9 HYPOTENSION NOS 05/01/2016 TORY FERRO, LINDA R Ot 789.03 ABDOMINAL PAIN, RIGHT LOWER QUADRANT 05/01/2016 Ot 789.03 ABDOMINAL PAIN, RIGHT LOWER QUADRANT 05/01/2016 ANIBAL FERRO, YVROSE Youssef Ot 008.00 INTESTINAL INFECTION DUE TO UNSPECIFIED 05/01/2016 ANIBAL FERRO, YVROSE Youssef Ot 276.8 HYPOPOTASSEMIA 05/01/2016 TORY FERRO, LINDA R Ot 562.10 DIVERTICULOSIS COLON (W/O MENT OF HEMORR 05/01/2016 TORY FERRO, LINDA R Ot 573.9 LIVER DISORDER NOS 05/01/2016 TORY FERRO, LINDA R Ot 793.11 SOLITARY PULMONARY NODULE 05/01/2016 TESS DOMINGUEZ DO Ot 486 PNEUMONIA, ORGANISM NOS 05/01/2016 TESS DOMINGUEZ DO Ot 782.3 EDEMA 05/01/2016 TESS DOMINGUEZ DO Ot 786.09 RESPIRATORY ABNORM NEC 05/01/2016 TESS DOMINGUEZ DO Ot 486 PNEUMONIA, ORGANISM NOS 05/01/2016 LINDA SPEARS MD R Ot 787.91 DIARRHEA 05/01/2016 TESS DOMINGUEZ DO Ot V72.84 EXAM PRE-OPERATIVE NOS 05/01/2016 JAMAL BELTRE APRN Ot 486 PNEUMONIA, ORGANISM NOS 05/01/2016 JAMAL BELTRE APRN Ot J18.9 PNEUMONIA, UNSPECIFIED ORGANISM 05/01/2016 JAMAL BELTRE APRN Ot J40 BRONCHITIS, NOT SPECIFIED ACUTE OR CH 05/01/2016 JAMAL BELTRE APRN Ot R06.83 SNORING 05/01/2016 TORY FERRO, LINDA R Ot R05 COUGH 05/01/2016 TORY FERRO, LINDA R Ot R60.9 EDEMA, UNSPECIFIED 05/01/2016 JOHANNA GLEASON DO Ot M79.661 PAIN IN RIGHT LOWER LEG 05/01/2016 JOHANNA GLEASON DO Ot M79.89 OTHER SPECIFIED SOFT TISSUE DISORDERS 05/02/2016 TORY FERRO, LINDA R Ot R51 HEADACHE 05/05/2016 TORY FERRO, LINDA R Ot R51 HEADACHE 05/07/2016 TORY FERRO, LINDA R Ot R51 HEADACHE 05/22/2016 TORY FERRO, LINDA R Ot R51 HEADACHE 06/17/2016 TORY FERRO, LINDA R Ot R51 HEADACHE 06/30/2016 Ot 729.5 PAIN IN LIMB 06/30/2016 Ot V12.51 HX-VENOUS THROMBOSIS EMBOLISM 06/30/2016 Ot V12.54 PERSONAL HX OF TIA, CEREBRAL INFARCTION 06/30/2016 Ot 719.45 JOINT PAIN- PELVIS 06/30/2016 Ot 721.3 LUMBOSACRAL SPONDYLOSIS 06/30/2016 Ot 722.52 LUMB/ LUMBOSAC DISC DEGEN 06/30/2016 Ot 786.2 COUGH 06/30/2016 TORY FERRO, LINDA R Ot 789.03 ABDOMINAL PAIN, RIGHT LOWER QUADRANT 06/30/2016 Ot 789.03 ABDOMINAL PAIN, RIGHT LOWER QUADRANT 06/30/2016 YVROSE BARNETT MD Ot 008.00 INTESTINAL INFECTION DUE TO UNSPECIFIED 06/30/2016 YVROSE BARNETT MD Ot 276.8 HYPOPOTASSEMIA 06/30/2016 TORY FERRO, LINDA R Ot 562.10 DIVERTICULOSIS COLON (W/O MENT OF HEMORR 06/30/2016 TORY FERRO, LINDA R Ot 573.9 LIVER DISORDER NOS 06/30/2016 TORY FERRO, LINDA R Ot 793.11 SOLITARY PULMONARY NODULE 06/30/2016 ETSS DOMINGUEZ DO Ot 486 PNEUMONIA, ORGANISM NOS 06/30/2016 TESS DOMINGUEZ DO Ot 782.3 EDEMA 06/30/2016 TESS DOMINGUEZ DO Ot 786.09 RESPIRATORY ABNORM NEC 06/30/2016 TESS DOMINGUEZ DO Ot 486 PNEUMONIA, ORGANISM NOS 06/30/2016 TOYR FERRO, LIDNA R Ot 787.91 DIARRHEA 06/30/2016 TESS DOMINGUEZ DO Ot V72.84 EXAM PRE-OPERATIVE NOS 06/30/2016 JAMAL BELTRE APRN Ot 486 PNEUMONIA, ORGANISM NOS 06/30/2016 JAMAL BELTRE PANEL BUILDER Ot J18.9 PNEUMONIA, UNSPECIFIED ORGANISM 06/30/2016 JAMAL BELTRE PANEL BUILDER Ot J40 BRONCHITIS, NOT SPECIFIED ACUTE OR CH 06/30/2016 JAMAL BELTRE APRN Ot R06.83 SNORING 06/30/2016 TORY FERRO, LINDA R Ot R05 COUGH 06/30/2016 TORY FERRO, LINDA R Ot R60.9 EDEMA, UNSPECIFIED 06/30/2016 JOHANNA GLEASON DO Ot M79.661 PAIN IN RIGHT LOWER LEG 06/30/2016 JOHANNA GLEASON DO Ot M79.89 OTHER SPECIFIED SOFT TISSUE DISORDERS 06/30/2016 TORY FERRO, LINDA R Ot R51 HEADACHE 10/20/2016 TORY FERRO, LINDA R Ot 789.03 ABDOMINAL PAIN, RIGHT LOWER QUADRANT 10/20/2016 Ot 789.03 ABDOMINAL PAIN, RIGHT LOWER QUADRANT 10/20/2016 ANIBAL FERRO, YVROSE Youssef Ot 008.00 INTESTINAL INFECTION DUE TO UNSPECIFIED 10/20/2016 ANIBAL FERRO, YVROSE Youssef Ot 276.8 HYPOPOTASSEMIA 10/20/2016 TORY FERRO, LINDA R Ot 562.10 DIVERTICULOSIS COLON (W/O MENT OF HEMORR 10/20/2016 TORY FERRO, LINDA R Ot 573.9 LIVER DISORDER NOS 10/20/2016 TORY FERRO, LINDA R Ot 793.11 SOLITARY PULMONARY NODULE 10/20/2016 TESS DOMINGUEZ DO Ot 486 PNEUMONIA, ORGANISM NOS 10/20/2016 TESS DOMINGUEZ DO Ot 782.3 EDEMA 10/20/2016 TESS DOMINGUEZ DO Ot 786.09 RESPIRATORY ABNORM NEC 10/20/2016 TESS DOMINGUEZ DO Ot 486 PNEUMONIA, ORGANISM NOS 10/20/2016 TORY FERRO, LINDA R Ot 787.91 DIARRHEA 10/20/2016 ANGELICA DO TESS Karson Ot V72.84 EXAM PRE-OPERATIVE NOS 10/20/2016 JAMAL BELTRE PANEL BUILDER Ot 486 PNEUMONIA, ORGANISM NOS 10/20/2016 JAMAL BELTRE PANEL BUILDER Ot J18.9 PNEUMONIA, UNSPECIFIED ORGANISM 10/20/2016 JAMAL BELTRE PANEL BUILDER Ot J40 BRONCHITIS, NOT SPECIFIED ACUTE OR CH 10/20/2016 JAMAL BELTRE PANEL BUILDER Ot R06.83 SNORING 10/20/2016 TORY FERRO, LINDA R Ot R05 COUGH 10/20/2016 LINDA SPEARS MD R Ot R60.9 EDEMA, UNSPECIFIED 10/20/2016 JOHANNA GLEASON DO Ot M79.661 PAIN IN RIGHT LOWER LEG 10/20/2016 JOHANNA GLEASON DO Ot M79.89 OTHER SPECIFIED SOFT TISSUE DISORDERS 10/20/2016 LINDA SPEARS MD R Ot R51 HEADACHE 10/21/2016 KAUSHIK GARCIA Ot R07.81 PLEURODYNIA 10/21/2016 KAUSHIK GARCIA Ot R91.8 OTHER NONSPECIFIC ABNORMAL FINDING OF RAFAL 11/03/2016 Carlitos Avila 379.24 OTHER VITREOUS OPACITIES 11/03/2016 Carlitos Avila 401.0 MALIGNANT ESSENTIAL HYPERTENSION 11/03/2016 Carlitos Avila 493.90 ASTHMA, UNSPECIFIED 11/03/2016 Carlitos Avila 530.81 ESOPHAGEAL REFLUX 11/03/2016 Carlitos Avila H43.391 OTHER VITREOUS OPACITIES, RIGHT EYE 11/03/2016 Carlitos Avila I10 ESSENTIAL (PRIMARY) HYPERTENSION 11/03/2016 Carlitos Avila J45.909 UNSPECIFIED ASTHMA, UNCOMPLICATED 11/03/2016 Carlitos Avila K21.9 GASTRO-ESOPHAGEAL REFLUX DISEASE WITHOUT ESOPHAGITIS 11/13/2016 KAUSHIK GARCIA Ot R07.81 PLEURODYNIA 11/13/2016 KAUSHIK GARCIA Ot R91.8 OTHER NONSPECIFIC ABNORMAL FINDING OF RAFAL 01/12/2017 LINDA SPEARS MD R Ot M79.0 RHEUMATISM, UNSPECIFIED 01/22/2017 KAUSHIK GARCIA Ot R07.81 PLEURODYNIA 01/22/2017 KAUSHIK GARCIA Ot R91.8 OTHER NONSPECIFIC ABNORMAL FINDING OF RAFAL 03/24/2017 DAVID ENGLAND Ot M23.321 OTH MENISCUS DERANG, POST HORN OF MEDIAL 03/27/2017 DAVID ENGLAND Ot M23.321 OTH MENISCUS DERANG, POST HORN OF MEDIAL 04/08/2017 KAUSHIK GARCIA Ot M47.816 SPONDYLOSIS W/O MYELOPATHY OR RADICULOPA 04/17/2017 DAVID ENGLAND Ot M23.231 DERANG OF MEDIAL MENISCUS DUE TO OLD TEA 04/17/2017 DAVID ENGLAND Ot M25.461 EFFUSION, RIGHT KNEE 04/27/2017 DAVID ENGLAND 717.7 CHONDROMALACIA OF PATELLA 04/27/2017 DAVID ENGLAND M22.41 CHONDROMALACIA PATELLAE, RIGHT KNEE 04/28/2017 KAUSHIK GARCIA Ot M47.816 SPONDYLOSIS W/O MYELOPATHY OR RADICULOPA 05/12/2017 DAVID ENGLAND Ot M23.231 DERANG OF MEDIAL MENISCUS DUE TO OLD TEA 05/12/2017 DAVID ENGLAND Ot M25.461 EFFUSION, RIGHT KNEE 05/25/2017 BA YANEZ MD Ot M81.0 AGE-RELATED OSTEOPOROSIS W/O CURRENT PAT 05/25/2017 BA YANEZ MD Ot N20.2 CALCULUS OF KIDNEY WITH CALCULUS OF URET 05/25/2017 BA YANEZ MD, Ot R20.2 PARESTHESIA OF SKIN 05/25/2017 BA YANEZ MD Ot Z79.82 USP (CURRENT) USE OF ASPIRIN 05/25/2017 BA YANEZ MD, Ot Z86.73 PRSNL HX OF TIA (TIA), AND CEREB INFRC W 05/25/2017 BA YANEZ MD, Ot Z87.01 PERSONAL HISTORY OF PNEUMONIA (RECURRENT 05/25/2017 BA YANEZ MD, Ot Z87.19 PERSONAL HISTORY OF OTHER DISEASES OF 06/12/2017 TORY FERRO, LINDA R Ot 789.03 ABDOMINAL PAIN, RIGHT LOWER QUADRANT 06/12/2017 Ot 789.03 ABDOMINAL PAIN, RIGHT LOWER QUADRANT 06/12/2017 YVROSE BARNETT MD Ot 008.00 INTESTINAL INFECTION DUE TO UNSPECIFIED 06/12/2017 YVROSE BARNETT MD Ot 276.8 HYPOPOTASSEMIA 06/12/2017 LINDA SPEARS MD Ot 562.10 DIVERTICULOSIS COLON (W/O MENT OF HEMORR 06/12/2017 TORY FERRO, LINDA R Ot 573.9 LIVER DISORDER NOS 06/12/2017 LINDA SPEARS MD R Ot 793.11 SOLITARY PULMONARY NODULE 06/12/2017 TESS DOMINGUEZ DO Ot 486 PNEUMONIA, ORGANISM NOS 06/12/2017 TESS DOMINGUEZ DO Ot 782.3 EDEMA 06/12/2017 TESS DOMINGUEZ DO Ot 786.09 RESPIRATORY ABNORM NEC 06/12/2017 TESS DOMINGUEZ DO M Ot 486 PNEUMONIA, ORGANISM NOS 06/12/2017 LINDA SPEARS MD Ot 787.91 DIARRHEA 06/12/2017 TESS DOMINGUEZ DO Ot V72.84 EXAM PRE-OPERATIVE NOS 06/12/2017 JAMAL BELTRE APRN Ot 486 PNEUMONIA, ORGANISM NOS 06/12/2017 JAMAL BELTRE APRN Ot J18.9 PNEUMONIA, UNSPECIFIED ORGANISM 06/12/2017 JAMAL BELTRE APRN Ot J40 BRONCHITIS, NOT SPECIFIED ACUTE OR CH 06/12/2017 JAMAL BELTRE APRN Ot R06.83 SNORING 06/12/2017 LINDA SPEARS MD R Ot R05 COUGH 06/12/2017 LINDA SPEARS MD R Ot R60.9 EDEMA, UNSPECIFIED 06/12/2017 JOHANNA GLEASON DO Ot M79.661 PAIN IN RIGHT LOWER LEG 06/12/2017 JOHANNA GLEASON DO Ot M79.89 OTHER SPECIFIED SOFT TISSUE DISORDERS 06/12/2017 LINDA SPEARS MD Ot R51 HEADACHE 06/12/2017 KAUSHIK GARCIA Ot R07.81 PLEURODYNIA 06/12/2017 KAUSHIK GARCIA Ot R91.8 OTHER NONSPECIFIC ABNORMAL FINDING OF RAFAL 06/12/2017 LINDA SPEARS MD R Ot M79.0 RHEUMATISM, UNSPECIFIED 06/12/2017 ANNA JOHNSONALEX PhamKAUSHIKANGELIA LUGO Ot M47.816 SPONDYLOSIS W/O MYELOPATHY OR RADICULOPA 06/12/2017 DAVID ENGLAND Ot M23.321 OTH MENISCUS DERANG, POST HORN OF MEDIAL 06/12/2017 DAVID ENGLANDP Ot M23.231 DERANG OF MEDIAL MENISCUS DUE TO OLD TEA 06/12/2017 DAVID ENGLAND Ot M25.461 EFFUSION, RIGHT KNEE 10/28/2017 CLINT BEST MD Ot M23.203 DERANG OF UNSP MEDIAL MENISCUS DUE TO OL 10/28/2017 CLINT BEST MD Ot M94.261 CHONDROMALACIA, RIGHT KNEE 10/28/2017 CLINT BEST MD Ot Z01.818 ENCOUNTER FOR OTHER PREPROCEDURAL EXAMIN 10/28/2017 CLINT BEST MD Ot Z11.2 ENCOUNTER FOR SCREENING FOR OTHER BACTER 10/28/2017 Ot 789.03 ABDOMINAL PAIN, RIGHT LOWER QUADRANT 10/28/2017 TORY FERRO, LINDA R Ot 787.91 DIARRHEA 10/29/2017 CLINT BEST MD Ot M23.203 DERANG OF UNSP MEDIAL MENISCUS DUE TO OL 10/29/2017 CLINT BEST MD Ot M94.261 CHONDROMALACIA, RIGHT KNEE 10/29/2017 CLINT BEST MD Ot Z01.818 ENCOUNTER FOR OTHER PREPROCEDURAL EXAMIN 10/29/2017 CLINT BEST MD Ot Z11.2 ENCOUNTER FOR SCREENING FOR OTHER BACTER 11/04/2017 CLINT BEST MD Ot F41.9 ANXIETY DISORDER, UNSPECIFIED 11/04/2017 CLINT BEST MD Ot I10 ESSENTIAL (PRIMARY) HYPERTENSION 11/04/2017 CLINT BEST MD Ot J30.2 OTHER SEASONAL ALLERGIC RHINITIS 11/04/2017 CLINT BEST MD Ot M23.8X1 OTHER INTERNAL DERANGEMENTS OF RIGHT KNE 11/04/2017 CLINT BEST MD Ot M94.261 CHONDROMALACIA, RIGHT KNEE 11/04/2017 CLINT BEST MD Ot Z79.899 OTHER USP (CURRENT) DRUG THERAPY 11/04/2017 CLINT BEST MD Ot Z86.73 PRSNL HX OF TIA (TIA), AND CEREB INFRC W 11/04/2017 CLINT BEST MD Ot Z88.2 ALLERGY STATUS TO SULFONAMIDES STATUS 11/05/2017 CLINT BEST MD Ot F41.9 ANXIETY DISORDER, UNSPECIFIED 11/05/2017 CLINT BEST MD Ot I10 ESSENTIAL (PRIMARY) HYPERTENSION 11/05/2017 CLINT BEST MD Ot J30.2 OTHER SEASONAL ALLERGIC RHINITIS 11/05/2017 CLINT BEST MD Ot M23.8X1 OTHER INTERNAL DERANGEMENTS OF RIGHT KNE 11/05/2017 CLINT BEST MD Ot M94.261 CHONDROMALACIA, RIGHT KNEE 11/05/2017 CLINT BEST MD Ot Z79.899 OTHER AUTOMATION AND CONTROLS SUPERVISOR (CURRENT) DRUG THERAPY 11/05/2017 CLINT BEST MD Ot Z86.73 PRSNL HX OF TIA (TIA), AND CEREB INFRC W 11/05/2017 CLINT BEST MD Ot Z88.2 ALLERGY STATUS TO SULFONAMIDES STATUS 12/04/2017 POLY PLASENCIA DO Ot F41.9 ANXIETY DISORDER, UNSPECIFIED 12/04/2017 POLY PLASENCIA DO Ot G43.909 MIGRAINE, UNSP, NOT INTRACTABLE, WITHOUT 12/04/2017 POLY PLASENCIA DO Ot I10 ESSENTIAL (PRIMARY) HYPERTENSION 12/04/2017 POLY PLASENCIA DO Ot M25.461 EFFUSION, RIGHT KNEE 12/04/2017 POLY PLASENCIA DO Ot M25.561 PAIN IN RIGHT KNEE 12/04/2017 POLY PLASENCIA DO Ot M79.604 PAIN IN RIGHT LEG 12/04/2017 POLY PLASENCIA DO Ot Z79.01 AUTOMATION AND CONTROLS SUPERVISOR (CURRENT) USE OF ANTICOAGULANT 12/04/2017 POLY PLASENCIA DO Ot Z79.51 AUTOMATION AND CONTROLS SUPERVISOR (CURRENT) USE OF INHALED STERO 12/04/2017 POLY PLASENCIA DO Ot Z79.82 USP (CURRENT) USE OF ASPIRIN 12/04/2017 POLY PLASENCIA DO Ot Z86.73 PRSNL HX OF TIA (TIA), AND CEREB INFRC W 12/04/2017 POLY PLASENCIA DO Ot Z87.19 PERSONAL HISTORY OF OTHER DISEASES OF TH 12/04/2017 YENNY PLASENCIA DOA K Ot Z87.2 PERSONAL HISTORY OF DISEASES OF THE SKIN 12/04/2017 LUIS ANGEL DOPOLY Ot Z87.59 PERSONAL HISTORY OF COMP OF PREG, CHLDBR 12/04[facility] ALLERGY STATUS TO OTHER ANTIBIOTIC AGENT 12/04/2017 [facility].8 ALLERGY STATUS TO OTH DRUG/MEDS/BIOL SUB 12/04/2017 [facility] Z90.89 ACQUIRED ABSENCE OF OTHER ORGANS 12/07/2017 LUIS ANGEL DOPOLY Ot F41.9 ANXIETY DISORDER, UNSPECIFIED 12/07/2017 LUIS ANGEL DOPOLY Ot G43.909 MIGRAINE, UNSP, NOT INTRACTABLE, WITHOUT 12/07/2017 LUIS ANGEL DOPOLY Ot I10 ESSENTIAL (PRIMARY) HYPERTENSION 12/07/2017 [facility] M25.461 EFFUSION, RIGHT KNEE 12/07/2017 [facility] M25.561 PAIN IN RIGHT KNEE 12/07/2017 [facility] M79.604 PAIN IN RIGHT LEG 12/07/2017 [facility] Z79.01 USP (CURRENT) USE OF ANTICOAGULANT 12/07/2017 LUIS ANGEL DOPOLY Ot Z79.51 USP (CURRENT) USE OF INHALED STERO 12/07/2017 [facility] Z79.82 USP (CURRENT) USE OF ASPIRIN 12/07/2017 [facility] Z86.73 PRSNL HX OF TIA (TIA), AND CEREB INFRC W 12/07/2017 [facility] Z87.19 PERSONAL HISTORY OF OTHER DISEASES OF TH 12/07/2017 LUIS ANGEL POLY HOLT Ot Z87.2 PERSONAL HISTORY OF DISEASES OF THE SKIN 12/07/2017 LUIS ANGEL DOPOLY Ot Z87.59 PERSONAL HISTORY OF COMP OF PREG, CHLDBR 12/07/2017 [facility].1 ALLERGY STATUS TO OTHER ANTIBIOTIC AGENT 12/07/2017 [facility] Z[facility].8 ALLERGY STATUS TO OTH DRUG/MEDS/BIOL SUB 12/07/2017 LUIS ANGELPOLY Rodriguez DO Ot Z90.89 ACQUIRED ABSENCE OF OTHER ORGANS 02/14/2018 Jennifer Hawthorne W 401.9 UNSPECIFIED ESSENTIAL HYPERTENSION 02/14/2018 Jennifer Hawthorne W I10 ESSENTIAL (PRIMARY) HYPERTENSION 02/14/2018 Jennifer Hawthorne A 401.9 UNSPECIFIED ESSENTIAL HYPERTENSION 02/14/2018 Jennifer Hawthorne W 536.8 DYSPEPSIA AND OTHER SPECIFIED DISORDERS OF FUNCTION OF STOMACH 02/14/2018 Jennifer Hawthorne W 782.0 DISTURBANCE OF SKIN SENSATION 02/14/2018 Jennifer Hawthorne A I10 ESSENTIAL (PRIMARY) HYPERTENSION 02/14/2018 Jennifer Hawthorne W K30 FUNCTIONAL DYSPEPSIA 02/14/2018 Jennifer Hawthorne W R20.2 PARESTHESIA OF SKIN 02/16/2018 Carlitos Avila W 401.0 MALIGNANT ESSENTIAL HYPERTENSION 02/16/2018 Carlitos Avila W 782.0 DISTURBANCE OF SKIN SENSATION 02/16/2018 Carlitos Avila A 786.5 CHEST PAIN 02/16/2018 Carlitos Avila W I10 ESSENTIAL (PRIMARY) HYPERTENSION 02/16/2018 Carlitos Avila A R07.89 OTHER CHEST PAIN 02/16/2018 Carlitos Avila W R20.2 PARESTHESIA OF SKIN 02/19/2018 ОЛЕГ FERRO FACC, PHYLLIS FACP CCDS Ot E66.8 OTHER OBESITY 02/19/2018 ОЛЕГ FERRO FACC, ALI FACP CCDS Ot I10 ESSENTIAL (PRIMARY) HYPERTENSION 02/19/2018 ОЛЕГ FERRO FACC, ALI FACP CCDS Ot R07.89 OTHER CHEST PAIN 02/19/2018 ОЛЕГ FERRO FACC, ALI FACP CCDS Ot Z86.73 PRSNL HX OF TIA (TIA), AND CEREB INFRC W 02/19/2018 ОЛЕГ FERRO FACC, ALI FACP CCDS Ot E66.8 OTHER OBESITY 02/19/2018 ОЛЕГ FERRO FACC, ALI FACP CCDS Ot I10 ESSENTIAL (PRIMARY) HYPERTENSION 02/19/2018 ОЛЕГ FERRO FACC, ALI FACP CCDS Ot R07.89 OTHER CHEST PAIN 02/19/2018 ОЛЕГ FERRO FACC, ALI FACP CCDS Ot Z86.73 PRSNL HX OF TIA (TIA), AND CEREB INFRC W 03/30/2018 ОЛЕГ FERRO FACC, ALI FACP CCDS Ot E66.8 OTHER OBESITY 03/30/2018 ОЛЕГ FERRO FAC, ALI FACP CCDS Ot I10 ESSENTIAL (PRIMARY) HYPERTENSION 03/30/2018 ОЛЕГ FERRO FAC, ALI FACP CCDS Ot R07.89 OTHER CHEST PAIN 03/30/2018 ОЛЕГ FERRO FACEstefania, ALI FACP CCDS Ot Z86.73 PRSNL HX OF TIA (TIA), AND CEREB INFRC W 04/16/2018 ОЛЕГ FERRO FAC, ALI FACP CCDS Ot E66.9 OBESITY, UNSPECIFIED 04/16/2018 ОЛЕГ FERRO FAC, ALI FACP CCDS Ot I10 ESSENTIAL (PRIMARY) HYPERTENSION 04/16/2018 ОЛЕГ FERRO FAC, ALI FACP CCDS Ot R07.89 OTHER CHEST PAIN 04/16/2018 ОЛЕГ FERRO [facility], ALI FACP CCDS Ot Z86.79 PERSONAL HISTORY OF OTHER DISEASES OF TH 04/20/2018 MICHAEL CARRASCO PANEL BUILDER Ot M47.26 OTHER SPONDYLOSIS WITH RADICULOPATHY, RAFAL 04/20/2018 MICHAEL CARRASCO PANEL BUILDER Ot M48.061 SPINAL STENOSIS, LUMBAR REGION WITHOUT N 04/20/2018 MICHAEL CARRASCO PANEL BUILDER Ot M51.17 INTVRT DISC DISORDERS W RADICULOPATHY, L 04/20/2018 MICHAEL CARRASCO PANEL BUILDER Ot 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, LUMBAR REGION 04/20/2018 MICHAEL CARRASCO PANEL BUILDER Ot M99.73 CONN TISS AND DISC STENOS OF INTVRT FORA 04/20/2018 MICHAEL CARRASCO PANEL BUILDER Ot N28.1 CYST OF KIDNEY, ACQUIRED 05/14/2018 W 724.4 THORACIC OR LUMBOSACRAL NEURITIS OR RADICULITIS, UNSPECIFIED 05/14/2018 W 726.5 ENTHESOPATHY OF HIP REGION 05/14/2018 W M54.16 RADICULOPATHY , LUMBAR REGION 05/14/2018 W M70.61 TROCHANTERIC BURSITIS, RIGHT HIP 05/18/2018 TORY FERRO, LINDA Adams Ot 724.02 SPINAL STENOSIS, LUMBAR REG, W/OUT NEURO 05/18/2018 LINDA SPEARS MD Ot 729.5 PAIN IN LIMB 05/18/2018 LOGAN BLACK DO Ot V72.84 EXAM PRE-OPERATIVE NOS 05/18/2018 TORY FERRO, LINDA R Ot 458.9 HYPOTENSION NOS 05/18/2018 TORY FERRO, LINDA R Ot 789.03 ABDOMINAL PAIN, RIGHT LOWER QUADRANT 05/18/2018 Ot 789.03 ABDOMINAL PAIN, RIGHT LOWER QUADRANT 05/18/2018 ANIBAL FERRO, YVROSE Youssef Ot 008.00 INTESTINAL INFECTION DUE TO UNSPECIFIED 05/18/2018 ANIBAL FERRO, YVROSE Youssef Ot 276.8 HYPOPOTASSEMIA 05/18/2018 TORY FERRO, LINDA R Ot 562.10 DIVERTICULOSIS COLON (W/O MENT OF HEMORR 05/18/2018 TORY FERRO, LINDA R Ot 573.9 LIVER DISORDER NOS 05/18/2018 TORY FERRO, LINDA R Ot 793.11 SOLITARY PULMONARY NODULE 05/18/2018 TESS DOMINGUEZ DO M Ot 486 PNEUMONIA, ORGANISM NOS 05/18/2018 MARCY DOMINGUEZ DOSON M Ot 782.3 EDEMA 05/18/2018 TESS DOMINGUEZ DO M Ot 786.09 RESPIRATORY ABNORM NEC 05/18/2018 MARCY DOMINGUEZ DOSON M Ot 486 PNEUMONIA, ORGANISM NOS 05/18/2018 TORY FERRO, LINDA R Ot 787.91 DIARRHEA 05/18/2018 TESS DOMINGUEZ DO Ot V72.84 EXAM PRE-OPERATIVE NOS 05/18/2018 JAMAL BELTRE PANEL BUILDER Ot 486 PNEUMONIA, ORGANISM NOS 05/18/2018 JAMAL BELTRE PANEL BUILDER Ot J18.9 PNEUMONIA, UNSPECIFIED ORGANISM 05/18/2018 JAMAL BELTRE PANEL BUILDER Ot J40 BRONCHITIS, NOT SPECIFIED ACUTE OR CH 05/18/2018 JAMAL BELTRE PANEL BUILDER Ot R06.83 SNORING 05/18/2018 TORY FERRO, LINDA R Ot R05 COUGH 05/18/2018 TORY FERRO, LINDA R Ot R60.9 EDEMA, UNSPECIFIED 05/18/2018 JOHANNA GLEASON DO Ot M79.661 PAIN IN RIGHT LOWER LEG 05/18/2018 JOHANNA GLEASON DO Ot M79.89 OTHER SPECIFIED SOFT TISSUE DISORDERS 05/18/2018 TORY FERRO, LINDA R Ot R51 HEADACHE 05/18/2018 KAUSHIK GARCIA Ot R07.81 PLEURODYNIA 05/18/2018 KAUSHIK GARCIA ASP WEB DEVELOPER Ot R91.8 OTHER NONSPECIFIC ABNORMAL FINDING OF RAFAL 05/18/2018 TORY FERRO, LINDA R Ot M79.0 RHEUMATISM, UNSPECIFIED 05/18/2018 KAUSHIK GARCIA ASP WEB DEVELOPER Ot M47.816 SPONDYLOSIS W/O MYELOPATHY OR RADICULOPA 05/18/2018 DAVID ENGLAND ASP WEB DEVELOPER Ot M23.321 OTH MENISCUS DERANG, POST HORN OF MEDIAL 05/18/2018 DAVID ENGLAND ASP WEB DEVELOPER Ot M23.231 DERANG OF MEDIAL MENISCUS DUE TO OLD TEA 05/18/2018 DAVID ENGLAND ASP WEB DEVELOPER Ot M25.461 EFFUSION, RIGHT KNEE 05/18/2018 ОЛЕГ FERRO FACC, ALI FACP CCDS Ot E66.9 OBESITY, UNSPECIFIED 05/18/2018 ОЛЕГ FERRO FACC, ALI FACP CCDS Ot I10 ESSENTIAL (PRIMARY) HYPERTENSION 05/18/2018 ОЛЕГ FERRO FACC, ALI FACP CCDS Ot R07.89 OTHER CHEST PAIN 05/18/2018 ОЛЕГ FERRO FACC, ALI FACP CCDS Ot Z86.79 PERSONAL HISTORY OF OTHER DISEASES OF TH 05/18/2018 ОЛЕГ FERRO FACC, ALI FACP CCDS Ot E66.8 OTHER OBESITY 05/18/2018 ОЛЕГ FERRO FACC, ALI FACP CCDS Ot I10 ESSENTIAL (PRIMARY) HYPERTENSION 05/18/2018 ОЛЕГ FERRO FACC, ALI FACP CCDS Ot R07.89 OTHER CHEST PAIN 05/18/2018 ОЛЕГ FERRO FACC, ALI FACP CCDS Ot Z86.73 PRSNL HX OF TIA (TIA), AND CEREB INFRC W 05/18/2018 MICHAEL CARRASCO R PANEL BUILDER Ot M47.26 OTHER SPONDYLOSIS WITH RADICULOPATHY, RAFAL 05/18/2018 LUNA MICHAEL R PANEL BUILDER Ot M48.061 SPINAL STENOSIS, LUMBAR REGION WITHOUT N 05/18/2018 MICHAEL CARRASCO R PANEL BUILDER Ot M51.17 INTVRT DISC DISORDERS W RADICULOPATHY, L 05/18/2018 MICHAEL CARRASCO R PANEL BUILDER Ot 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, LUMBAR REGION 05/18/2018 LUNA MICHAEL R PANEL BUILDER Ot M99.73 CONN TISS AND DISC STENOS OF INTVRT FORA 05/18/2018 MICHAEL CARRASCO R PANEL BUILDER Ot N28.1 CYST OF KIDNEY, ACQUIRED 05/18/2018 ОЛЕГ FERRO FACC, ALI FACP CCDS Ot E66.9 OBESITY, UNSPECIFIED 05/18/2018 ОЛЕГ FERRO FACC, ALI FACP CCDS Ot I10 ESSENTIAL (PRIMARY) HYPERTENSION 05/18/2018 ОЛЕГ FERRO FACC, ALI FACP CCDS Ot I65.21 OCCLUSION AND STENOSIS OF RIGHT CAROTID 05/18/2018 ОЛЕГ FERRO FACC, ALI FACP CCDS Ot J42 UNSPECIFIED CHRONIC BRONCHITIS 05/18/2018 ОЛЕГ FERRO FACC, ALI FACP CCDS Ot R00.2 PALPITATIONS 05/18/2018 ОЛЕГ FERRO FACC, ALI FACP CCDS Ot Z68.38 BODY MASS INDEX (BMI) 38.0-38.9, ADULT 05/18/2018 ОЛЕГ DAYC, ALI FACP CCDS Ot Z79.82 USP (CURRENT) USE OF ASPIRIN 05/18/2018 ОЛЕГ FERRO FACC, ALI FACP CCDS Ot Z79.899 OTHER USP (CURRENT) DRUG THERAPY 05/18/2018 ОЛЕГ FERRO FACC, ALI FACP CCDS Ot Z86.73 PRSNL HX OF TIA (TIA), AND CEREB INFRC W 05/21/2018 ОЛЕГ FERRO FACC, ALI FACP CCDS Ot E66.9 OBESITY, UNSPECIFIED 05/21/2018 ОЛЕГ FEROR FACC, ALI FACP CCDS Ot I10 ESSENTIAL (PRIMARY) HYPERTENSION 05/21/2018 ОЛЕГ FERRO FACC, ALI FACP CCDS Ot I65.21 OCCLUSION AND STENOSIS OF RIGHT CAROTID 05/21/2018 ОЛЕГ FERRO FACC, ALI FACP CCDS Ot J42 UNSPECIFIED CHRONIC BRONCHITIS 05/21/2018 ОЛЕГ FERRO FACC, ALI FACP CCDS Ot R00.2 PALPITATIONS 05/21/2018 ОЛЕГ FERRO FACC, ALI FACP CCDS Ot Z68.38 BODY MASS INDEX (BMI) 38.0-38.9, ADULT 05/21/2018 ОЛЕГ FERRO FACC, ALI FACP CCDS Ot Z79.82 USP (CURRENT) USE OF ASPIRIN 05/21/2018 ОЛЕГ FERRO FACC, ALI FACP CCDS Ot Z79.899 OTHER AUTOMATION AND CONTROLS SUPERVISOR (CURRENT) DRUG THERAPY 05/21/2018 ОЛЕГ DAYC, PHYLLIS DAYP CCDS Ot Z86.73 PRSNL HX OF TIA (TIA), AND CEREB INFRC W 05/31/2018 PATTJAMAL SWEENEY PANEL BUILDER Ot G47.10 HYPERSOMNIA, UNSPECIFIED 05/31/2018 PATT, JAMAL E PANEL BUILDER Ot G47.10 HYPERSOMNIA, UNSPECIFIED 06/02/2018 PATT, JAMAL E PANEL BUILDER Ot G47.10 HYPERSOMNIA, UNSPECIFIED 06/02/2018 PATT, JAMAL E PANEL BUILDER Ot G47.33 OBSTRUCTIVE SLEEP APNEA (ADULT) (PEDIATR 06/02/2018 PATTCATHLEEN SWEENEYINE E PANEL BUILDER Ot R00.2 PALPITATIONS 06/02/2018 PATTJAMAL SWEENEY E PANEL BUILDER Ot R06.83 SNORING 06/02/2018 PATTJAMAL SWEENEY PANEL BUILDER Ot G47.10 HYPERSOMNIA, UNSPECIFIED 06/02/2018 PATTJAMAL SWEENEY PANEL BUILDER Ot R00.2 PALPITATIONS 06/02/2018 PATTJAMAL SWEENEY PANEL BUILDER Ot R06.83 SNORING 06/08/2018 MICHAEL ACRRASCO R PANEL BUILDER Ot M47.26 OTHER SPONDYLOSIS WITH RADICULOPATHY, RAFAL 06/08/2018 LUNA MICHAEL R PANEL BUILDER Ot M48.061 SPINAL STENOSIS, LUMBAR REGION WITHOUT N 06/08/2018 MICHAEL CARRASCO R PANEL BUILDER Ot M51.17 INTVRT DISC DISORDERS W RADICULOPATHY, L 06/08/2018 MICHAEL CARRASCO R PANEL BUILDER Ot 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, LUMBAR REGION 06/08/2018 MICHAEL CARRASCO R PANEL BUILDER Ot M99.73 CONN TISS AND DISC STENOS OF INTVRT FORA 06/08/2018 LUNA MICHAEL R PANEL BUILDER Ot N28.1 CYST OF KIDNEY, ACQUIRED 06/11/2018 A 724.4 THORACIC OR LUMBOSACRAL NEURITIS OR RADICULITIS, UNSPECIFIED 06/11/2018 W 726.5 ENTHESOPATHY OF HIP REGION 06/11/2018 A M54.16 RADICULOPATHY , LUMBAR REGION 06/11/2018 W M70.61 TROCHANTERIC BURSITIS, RIGHT HIP 07/16/2018 MARCELO ENGLAND DO Ot 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 07/16/2018 ENGLAND DO, MARCELO C Ot N95.0 POSTMENOPAUSAL BLEEDING 07/16/2018 ENGLAND , MARCELO C Ot Z12.31 ENCNTR SCREEN MAMMOGRAM FOR MALIGNANT NE 08/05/2018 ENGLAND DO, MARCELO C Ot 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 08/05/2018 ENGLAND DO, MARCELO C Ot N95.0 POSTMENOPAUSAL BLEEDING 08/05/2018 ENGLAND DO, MARCELO C Ot Z12.31 ENCNTR SCREEN MAMMOGRAM FOR MALIGNANT NE 08/13/2018 TORY FERRO, LINDA R Ot 789.03 ABDOMINAL PAIN, RIGHT LOWER QUADRANT 08/13/2018 Ot 789.03 ABDOMINAL PAIN, RIGHT LOWER QUADRANT 08/13/2018 ANIBAL FERRO, YVROSE Youssef Ot 008.00 INTESTINAL INFECTION DUE TO UNSPECIFIED 08/13/2018 ANIBAL FERRO, YVROSE Youssef Ot 276.8 HYPOPOTASSEMIA 08/13/2018 TORY FERRO, LINDA R Ot 562.10 DIVERTICULOSIS COLON (W/O MENT OF HEMORR 08/13/2018 TORY FERRO, LINDA R Ot 573.9 LIVER DISORDER NOS 08/13/2018 TORY FERRO, LINDA R Ot 793.11 SOLITARY PULMONARY NODULE 08/13/2018 TESS DOMINGUEZ DO Ot 486 PNEUMONIA, ORGANISM NOS 08/13/2018 TESS DOMINGUEZ DO Ot 782.3 EDEMA 08/13/2018 TESS DOMINGUEZ DO Ot 786.09 RESPIRATORY ABNORM NEC 08/13/2018 TESS DOMINGUEZ DO Ot 486 PNEUMONIA, ORGANISM NOS 08/13/2018 TORY FERRO, LINDA R Ot 787.91 DIARRHEA 08/13/2018 TESS DOMINGUEZ DO Ot V72.84 EXAM PRE-OPERATIVE NOS 08/13/2018 JAMAL BELTRE PANEL BUILDER Ot 486 PNEUMONIA, ORGANISM NOS 08/13/2018 JAMAL BELTRE PANEL BUILDER Ot J18.9 PNEUMONIA, UNSPECIFIED ORGANISM 08/13/2018 JAMAL BELTRE PANEL BUILDER Ot J40 BRONCHITIS, NOT SPECIFIED ACUTE OR CH 08/13/2018 JAMAL BELTRE PANEL BUILDER Ot R06.83 SNORING 08/13/2018 TORY FERRO, LINDA R Ot R05 COUGH 08/13/2018 TORY FERRO, LINDA R Ot R60.9 EDEMA, UNSPECIFIED 08/13/2018 MARISABELDER DO JOHANNA Youssef Ot M79.661 PAIN IN RIGHT LOWER LEG 08/13/2018 ROSIBEL HOLT JOHANNA Youssef Ot M79.89 OTHER SPECIFIED SOFT TISSUE DISORDERS 08/13/2018 TORY FERRO, LINDA Adams Ot R51 HEADACHE 08/13/2018 KAUSHIK GARCIA Ot R07.81 PLEURODYNIA 08/13/2018 KAUSHIK GARCIAP Ot R91.8 OTHER NONSPECIFIC ABNORMAL FINDING OF RAFAL 08/13/2018 TORY FERRO, LINDA Adams Ot M79.0 RHEUMATISM, UNSPECIFIED 08/13/2018 KAUSHIK GARCIAP Ot M47.816 SPONDYLOSIS W/O MYELOPATHY OR RADICULOPA 08/13/2018 DAVID ENGLAND ASP WEB DEVELOPER Ot M23.321 OTH MENISCUS DERANG, POST HORN OF MEDIAL 08/13/2018 DAVID ENGLAND ASP WEB DEVELOPER Ot M23.231 DERANG OF MEDIAL MENISCUS DUE TO OLD TEA 08/13/2018 DAVID ENGLAND ASP WEB DEVELOPER Ot M25.461 EFFUSION, RIGHT KNEE 08/13/2018 ОЛЕГ FERRO FACC, ALI FACP CCDS Ot E66.9 OBESITY, UNSPECIFIED 08/13/2018 ОЛЕГ FERRO FACC, ALI FACP CCDS Ot I10 ESSENTIAL (PRIMARY) HYPERTENSION 08/13/2018 ОЛЕГ FERRO FACC, ALI FACP CCDS Ot R07.89 OTHER CHEST PAIN 08/13/2018 ОЛЕГ FERRO FACC, ALI FACP CCDS Ot Z86.79 PERSONAL HISTORY OF OTHER DISEASES OF TH 08/13/2018 ОЛЕГ FERRO FACC, ALI FACP CCDS Ot E66.8 OTHER OBESITY 08/13/2018 ОЛЕГ FERRO FACC, ALI FACP CCDS Ot I10 ESSENTIAL (PRIMARY) HYPERTENSION 08/13/2018 ОЛЕГ FERRO FACC, ALI FACP CCDS Ot R07.89 OTHER CHEST PAIN 08/13/2018 ОЛЕГ FERRO FACC, ALI FACP CCDS Ot Z86.73 PRSNL HX OF TIA (TIA), AND CEREB INFRC W 08/13/2018 MICHAEL CARRASCO APRN Ot M47.26 OTHER SPONDYLOSIS WITH RADICULOPATHY, RAFAL 08/13/2018 MICHAEL CARRASCO APRN Ot M48.061 SPINAL STENOSIS, LUMBAR REGION WITHOUT N 08/13/2018 MICHAEL CARRASCO PANEL BUILDER Ot M51.17 INTVRT DISC DISORDERS W RADICULOPATHY, L 08/13/2018 MICHAEL CARRASCO R PANEL BUILDER Ot 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, LUMBAR REGION 08/13/2018 LUNA MICHAEL R PANEL BUILDER Ot M99.73 CONN TISS AND DISC STENOS OF INTVRT FORA 08/13/2018 MICHAEL CARRASCO R PANEL BUILDER Ot N28.1 CYST OF KIDNEY, ACQUIRED 08/13/2018 ENGLAND DO, MARCELO C Ot 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 08/13/2018 ENGLAND DO, MARCELO C Ot N95.0 POSTMENOPAUSAL BLEEDING 08/13/2018 ENGLAND DO, MARCELO C Ot Z12.31 ENCNTR SCREEN MAMMOGRAM FOR MALIGNANT NE 08/20/2018 ENGLAND DO, MARCELO C Ot 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 08/20/2018 ENGLAND DO, MARCELO C Ot N95.0 POSTMENOPAUSAL BLEEDING 08/20/2018 ENGLAND DO, MARCELO C Ot Z12.31 ENCNTR SCREEN MAMMOGRAM FOR MALIGNANT NE 10/17/2018 JAMAL BELTRE PANEL BUILDER Ot G47.10 HYPERSOMNIA, UNSPECIFIED 10/17/2018 CATHLEEN BELTREINE E PANEL BUILDER Ot J18.9 PNEUMONIA, UNSPECIFIED ORGANISM 10/17/2018 CATHLEEN BELTREINE E PANEL BUILDER Ot J30.9 ALLERGIC RHINITIS, UNSPECIFIED 10/17/2018 CATHLEEN BELTREINE E PANEL BUILDER Ot J40 BRONCHITIS, NOT SPECIFIED ACUTE OR CH 11/03/2018 JAMAL BELTRE E PANEL BUILDER Ot G47.10 HYPERSOMNIA, UNSPECIFIED 11/03/2018 CATHLEEN BELTREINE E PANEL BUILDER Ot J18.9 PNEUMONIA, UNSPECIFIED ORGANISM 11/03/2018 CATHLEEN BELTREINE E PANEL BUILDER Ot J30.9 ALLERGIC RHINITIS, UNSPECIFIED 11/03/2018 CATHLEEN BELTREINE E PANEL BUILDER Ot J40 BRONCHITIS, NOT SPECIFIED ACUTE OR CH 11/22/2018 CATHLENE BELTREINE E PANEL BUILDER Ot G47.10 HYPERSOMNIA, UNSPECIFIED 11/22/2018 CATHLEEN BELTREINE E PANEL BUILDER Ot J18.9 PNEUMONIA, UNSPECIFIED ORGANISM 11/22/2018 CATHLEEN BELTREINE E PANEL BUILDER Ot J30.9 ALLERGIC RHINITIS, UNSPECIFIED 11/22/2018 JAMAL BELTRE APRN Ot J40 BRONCHITIS, NOT SPECIFIED ACUTE OR CH 11/23/2018 ОЛЕГ FERRO [facility] CCDS Ot I10 ESSENTIAL (PRIMARY) HYPERTENSION 11/23/2018 ОЛЕГ FERRO [facility] CCDS Ot I48.0 PAROXYSMAL ATRIAL FIBRILLATION 11/23/2018 ОЛЕГ FERRO [facility] CCDS Ot M79.89 OTHER SPECIFIED SOFT TISSUE DISORDERS 11/23/2018 ОЛЕГ FERRO [facility] CCDS Ot Z86.79 PERSONAL HISTORY OF OTHER DISEASES OF Procedures There is no data. Results Test Result Range Methicillin resistant Staphylococcus aureus (MRSA) screening culture - 09:30 Methicillin resistant Staphylococcus aureus (MRSA) screening culture NEG NRG Complete blood count (CBC) with automated white blood cell (WBC) differential - 12/04/17 20:22 Blood leukocytes automated count (number/volume) 4.9 10*3/uL 4.3-11.0 Blood erythrocytes automated count (number/volume) 4.37 10*6/uL 4.35-5.85 Venous blood hemoglobin measurement (mass/volume) 12.5 g/dL 11.5-16.0 Blood hematocrit (volume fraction) 38 % 35-52 Automated erythrocyte mean corpuscular volume 88 [foz_us] 80-99 Automated erythrocyte mean corpuscular hemoglobin (mass per erythrocyte) 29 pg 25-34 Automated erythrocyte mean corpuscular hemoglobin concentration measurement ( mass/volume) 33 g/dL 32-36 Automated erythrocyte distribution width ratio 14.7 % 10.0-14.5 Automated blood platelet count (count/volume) 213 10*3/uL 130-400 Automated blood platelet mean volume measurement 9.5 [foz_us] 7.4-10.4 Automated blood neutrophils/100 leukocytes 58 % 42-75 Automated blood lymphocytes/100 leukocytes 28 % 12-44 Blood monocytes/100 leukocytes 10 % 0-12 Automated blood eosinophils/100 leukocytes 3 % 0-10 Automated blood basophils/100 leukocytes 0 % 0-10 Blood neutrophils automated count (number/volume) 2.8 10*3 1.8-7.8 Blood lymphocytes automated count (number/volume) 1.4 10*3 1.0-4.0 Blood monocytes automated count (number/volume) 0.5 10*3 0.0-1.0 Automated eosinophil count 0.2 10*3/uL 0.0-0.3 Automated blood basophil count (count/volume) 0.0 10*3/uL 0.0-0.1 PT panel in platelet poor plasma by coagulation assay - 12/04/17 20:22 Prothrombin time (PT) in platelet poor plasma by coagulation assay 12.7 s 12.2-14.7 INR in platelet poor plasma or blood by coagulation assay 0.9 0.8-1.4 Activated partial thromboplastin time (aPTT) in platelet poor plasma bycoagulation assay - 12/04/17 20:22 Activated partial thromboplastin time (aPTT) in platelet poor plasma bycoagulation assay 23 s 24-35 Comprehensive metabolic panel - 12/04/17 20:22 Serum or plasma sodium measurement (moles/volume) 139 mmol/L 135-145 Serum or plasma potassium measurement (moles/volume) 5.1 mmol/L 3.6-5.0 Serum or plasma chloride measurement (moles/volume) 107 mmol/L 98-107 Carbon dioxide 25 mmol/L 21-32 Serum or plasma anion gap determination (moles/volume) 7 mmol/L 5-14 Serum or plasma urea nitrogen measurement (mass/volume) 17 mg/dL 7-18 Serum or plasma creatinine measurement (mass/volume) 1.03 mg/dL 0.60-1.30 Serum or plasma urea nitrogen/creatinine mass ratio 17 NRG Serum or plasma creatinine measurement with calculation of estimated glomerular filtration rate 52 NRG Serum or plasma glucose measurement (mass/volume) 100 mg/dL 70-105 Serum or plasma calcium measurement (mass/volume) 8.8 mg/dL 8.5-10.1 Serum or plasma total bilirubin measurement (mass/volume) 0.3 mg/dL 0.1-1.0 Serum or plasma alkaline phosphatase measurement (enzymatic activity/volume) 77 U/L 40-136 Serum or plasma aspartate aminotransferase measurement (enzymatic activity/ volume) 34 U/L 5-34 Serum or plasma alanine aminotransferase measurement (enzymatic activity/volume ) 17 U/L 0-55 Serum or plasma protein measurement (mass/volume) 7.1 g/dL 6.4-8.2 Serum or plasma albumin measurement (mass/volume) 4.0 g/dL 3.2-4.5 Fibrin D-dimer FEU measurement in platelet poor plasma (mass/volume) - 20:22 Fibrin D-dimer FEU measurement in platelet poor plasma (mass/volume) 0.52 ug/mL 0.00-0.49 Serum or plasma lithium measurement (moles/volume) - 12/04/17 20:22 BNP level 54.3 pg/mL <100.0 Thyroid Stimulating Hormone - 02/13/18 21:24 TSH 1.54 mIU/mL 0.32-5.00 Cardiac Panel - 02/14/18 00:15 CK 107 U/L 26-174 CK-MB 1.6 ng/ml 0.0-9.2 Myoglobin 40.1 ng/ml 1.6-106.0 Troponin <0.020 ng/mL 0.0-0.4 Comprehensive Metabolic Panel - 02/16/18 14:40 Albumin 4.3 g/dL 3.6-5.1 ALP 107 U/L 35-130 ALT 27 U/L 6-45 Anion Gap 20 6-14 AST 22 U/L 2-40 BUN 16 mg/dL 5-25 Calcium 9.6 mg/dL 8.3-10.4 Chloride 104 mmol/L 95-114 CO2 23 mEq/L 22-33 Creat 0.93 mg/dL 0.50-1.50 eGFR 59 mL/min/1.73m2 >59 Globulin 3.1 g/dL 2.3-3.5 Glucose 93 mg/dL 70-110 Osmo 296 280-295 Potassium 4.1 mmol/L 3.5-5.3 Sodium 143 mmol/L 134-148 TBil 0.2 mg/dL 0.2-1.2 TP 7.4 g/dL 6.0-8.3 Troponin I - 02/16/18 17:34 Troponin <0.020 ng/mL 0.0-0.4 Encounters ACCT No. Visit Date/Time Discharge Status Pt. Type Provider Facility Loc./Unit Complaint [id number] 11/22/2018 08:29:00 11/22/2018 23:59:59 CLS Outpatient PHYLLIS DENNEY MD, FACC, FACP CCDS [facility] LAB LEG SWELLING [id number] 10/07/2018 10:29:00 10/07/2018 23:59:59 CLS Outpatient JAMAL BELTRE APRN [facility] RAD COUGH [id number] 07/15/2018 10:39:00 07/15/2018 23:59:59 CLS Outpatient ENGLANDChip HOLT MARCELO C [facility] RAD SCREENING [id number] 06/01/2018 20:40:00 06/02/2018 06:46:00 DIS Outpatient JAMAL BELTRE PANEL BUILDER [facility] SLEEP EXCESSIVE SLEEPINESS [id number] 05/18/2018 07:37:00 05/18/2018 10:00:00 DIS Outpatient ОЛЕГ FERRO FACEstefania, PHYLLIS FACNehemiah CCDS [facility] CATH H/O CVA, PALPITATIONS [id number] 04/19/2018 07:48:00 04/19/2018 23:59:59 CLS Outpatient MICHAEL CARRASCO PANEL BUILDER [facility] RAD LUMBAR BACK PAIN W/ RADICULOPATHY AFFECTING RL EXT [id number] 02/22/2018 10:52:00 02/22/2018 23:59:59 CLS Outpatient ОЛЕГ FERRO FACC, PHYLLIS FACNehemiah CCDS [facility] CARD CHEST DISCOMFORT,OBESITY [id number] 02/18/2018 06:55:00 02/18/2018 23:59:59 CLS Outpatient ОЛЕГ FERRO FACC, PHYLLIS FACNehemiah CCDS [facility] CARD CHEST DISCOMFORT,OBESITY [id number] 12/04/2017 19:09:00 12/04/2017 21:29:00 DIS Emergency POLY PLASENCIA DO [facility] ER R LEG PAIN/SWELLING [id number] 11/04/2017 07:22:00 11/04/2017 13:05:00 DIS [facility]NEE TORN MEDIAL MENISCUS, CHONDROMALASIA [id number] 10/28/2017 08:39:00 10/28/2017 10:34:00 DIS Outpatient CLINT BEST MD [facility] PREOP RIGHT KNEE TORN MEDIAL MENISCUS; CHONDROMALASIA [id number] 05/25/2017 09:28:00 05/25/2017 11:10:00 DIS Emergency BA YANEZ MD [facility] ER HANDS NUMB,DIZZY [id number] 03/27/2017 08:17:00 03/27/2017 23:59:59 CLS Outpatient DAVID ENGLAND ASP WEB DEVELOPER [facility] RAD M23.231 [id number] 03/23/2017 12:24:00 03/23/2017 23:59:59 CLS Outpatient DAVID ENGLAND ASP WEB DEVELOPER [facility] RAD M23.231 [id number] 03/16/2017 10:33:00 03/16/2017 23:59:59 CLS Outpatient KAUSHIK GARCIA [facility] RAD M54.31 [id number] 12/19/2016 09:41:00 12/19/2016 23:59:59 CLS Outpatient LINDA SPEARS MD [facility] RAD FIBRISITIS M79.7 [id number] 10/17/2016 10:50:00 10/17/2016 23:59:59 CLS Outpatient KAUSHIK GARCIA [facility] RAD RT SIDE RIB PAIN [id number] 05/01/2016 09:28:00 05/01/2016 23:59:59 CLS Outpatient LINDA SPEARS MD [facility] RAD PRESISTANT [place] [id number] 09/07/2015 12:10:00 09/07/2015 23:59:59 CLS Outpatient JOHANNA GLEASON DO [facility] RAD RT LEG SWELLING PREVIOUS CVA [id number] 09/05/2015 11:57:00 09/05/2015 23:59:59 CLS Outpatient LINDA SPEARS MD [facility] LAB EDEMA [id number] 07/12/2015 11:38:00 07/12/2015 23:59:59 CLS Outpatient LINDA SPEARS MD [facility] LAB COUGH [id number] 05/03/2015 13:58:00 05/03/2015 23:59:59 CLS Outpatient JAMAL BELTRE APRN [facility] RAD BRONCHITIS, PNEUMONIA, SNORING [id number] 02/06/2015 09:45:00 02/06/2015 23:59:59 CLS Outpatient JAMAL BELTRE APRN [facility] RAD PNEUMONIA [id number] 12/18/2014 11:46:00 12/18/2014 16:05:00 DIS Outpatient TESS DOMINGUEZ DO [facility] SDC PNEUMONIA [id number] 12/13/2014 05:52:00 12/13/2014 23:59:59 CLS Outpatient TESS DOMINGEUZ DO [facility] PREOP PNEUMONIA [id number] 11/21/2014 00:10:00 11/21/2014 23:59:59 CLS Preadmit LINDA SPEARS MD [facility] LAB PERSISTANT DIARRHEA [id number] 08/23/2014 08:38:00 11/20/2014 00:01:00 DIS Outpatient LINDA SPEARS MD [facility] LAB PERSISTANT DIARRHEA [id number] 11/16/2014 11:44:00 11/16/2014 23:59:59 CLS Outpatient TESS DOMINGUEZ DO [facility] RAD PNEUMONIA [id number] 07/12/2014 10:39:00 07/12/2014 23:59:59 CLS Outpatient TESS DOMINGUEZ DO [facility] RAD PNEUMONIA,EEMA EXTREMITIES,SNORING [id number] 06/23/2014 11:38:00 06/27/2014 14:40:00 DIS Inpatient TESS DOMINGUEZ DO [facility] 4TH BI LATERAL PNA [id number] 06/12/2014 10:47:00 06/12/2014 23:59:59 CLS Outpatient LINDA SPEARS MD [facility] RAD NODULE 15 MIN RT HILUM [id number] 03/27/2014 10:44:00 03/27/2014 23:59:59 CLS Outpatient ANIBAL FERRO, YVROSE Youssef [facility] LAB HYPOKALEMIA,ECOLI COLITIS [id number] 03/21/2014 18:21:00 03/25/2014 16:50:00 DIS Inpatient LINDA SPEARS MD [facility] 4TH COLITIS, N/V/D, LGIB [id number] 11/23/2013 13:27:00 02/14/2014 00:01:00 DIS Outpatient LINDA SPEARS MD [facility] LAB RLQ PAIN [id number] 11/23/2013 13:30:00 11/23/2013 23:59:59 CLS Outpatient LINDA SPEARS MD [facility] RAD RLQ PAIN [id number] 05/26/2013 09:27:00 05/26/2013 23:59:59 CLS Outpatient LINDA SPEARS MD [facility] RAD HYPOTENSION [id number] 05/10/2013 10:33:00 05/10/2013 14:50:00 DIS Outpatient LOGAN BLACK DO [facility] SDC REFLUX [id number] 05/05/2013 07:13:00 05/05/2013 23:59:59 CLS Outpatient LOGAN BLACK DO [facility] PREOP REFLUX [id number] 01/04/2013 13:43:00 01/04/2013 23:59:59 CLS Outpatient LINDA SPEARS MD [facility] RAD L4/L5 NEUROPATHY [id number] 02/15/2014 00:00:00 Document Registration [id number] 02/19/2011 09:48:00 Document Registration [id number] 01/13/2011 09:55:00 Document Registration [id number] 01/12/2011 12:46:00 Document Registration [id number] 04/11/2010 08:40:00 Document Registration [id number] 04/10/2010 11:22:00 Document Registration [id number] 02/21/2010 12:35:00 Document Registration [id number] 02/16/2018 14:13:00 02/16/2018 18:39:00 DIS Outpatient Margarita [facility] ER [id number] 02/13/2018 21:04:00 02/14/2018 01:40:00 DIS Outpatient Christoph [facility] ER [id number] 05/01/2017 09:18:00 05/26/2017 09:05:00 DIS Outpatient DAVID ENGLAND [id number] 11/03/2016 15:04:00 11/03/2016 17:05:00 DIS Outpatient Margarita [facility] [id number] 05/06/2018 14:23:01 Document Registration [id number] 02/14/2018 01:01:32 Document Registration
[2018-12-09 23:00] VITALS: BP 178/96
[2018-12-09] MEDS ORDERED: cloNIDine 0.1 MG (CATAPRES) TAB PO PRN (23:15)
--- NOTE | 2018-12-09 23:15 | NUR ---
TO CT SCAN PER WC.
--- NOTE | 2018-12-09 23:35 | NUR ---
RETURN FROM CT, TECH SHOWING THAT RESULT OF GFR 34. SHOWED TECH RESULTS FROM [facility] VISIT OF BUCKY AND GFR 53, PT RETURNED TO XRAY DEPT FOR CT SCAN
[2018-12-10] MEDS ORDERED: hydrALAZINE (APRESOLINE) 25 MG TAB ONE (00:16)
[2018-12-10] MEDS ORDERED: PANTOPRAZOLE 40 MG (PROTONIX) TAB PO ONE (00:16)
[2018-12-10] MEDS ORDERED: APIXABAN 5 MG (ELIQUIS) TABLET ONE (00:16)
[2018-12-10] MEDS ORDERED: traZODone 50 MG (DESYREL) TAB ONE (00:16)
[2018-12-10] MEDS ORDERED: ALPRAZolam 0.5 MG (XANAX) TAB ONE (00:16)
--- NOTE | 2018-12-10 00:20 | NUR ---
RETURN FROM XRAY AND HS DOSE OF MEDS GIVEN.
[2018-12-10 00:30] VITALS: BP 170/86
[2018-12-10 01:00] VITALS: BP 147/75
[2018-12-10 02:00] VITALS: BP 153/75
[2018-12-10 04:00] VITALS: BP 146/76
--- NOTE | 2018-12-10 07:21 | Diagnostic Imaging Report ---
PROCEDURE: CT angiography of the head with and without contrast. TECHNIQUE: Noncontrast CT of the head was obtained. Subsequently, after intravenous administration of contrast, thin section axial CT angiography of the head was performed. Source data was reformatted into multiple MIP reformats. Delayed postcontrast acquisition of the head was also acquired. Auto Exposure Controls were utilized during the CT exam to meet ALARA standards for radiation dose reduction. INDICATION: Hypertensive crisis. COMPARISON: CT head without contrast 05/25/2017. FINDINGS: Noncontrast head CT demonstrates chronic infarct in the deep white matter of the left frontal lobe. Mvdr-ag-smjnkyfq leukoaraiosis. Mild generalized cerebral and cerebellar parenchymal volume loss. No intracranial hemorrhage, mass effect, hydrocephalus or extraaxial fluid collections. No CT evidence of a territorial infarction. Osseous structures are intact. Mild mucosal thickening in the partially visualized maxillary sinuses. Mastoids are clear. Intracranial CTA demonstrates the internal carotid, vertebral, basilar, anterior cerebral, middle cerebral and posterior cerebral arteries widely patent without evidence of aneurysm or dissection. The dural venous sinuses are patent. IMPRESSION: 1. 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 No acute intracranial CT findings. 2. Normal intracranial CTA. Dictated by: Dictated on workstation # [id number]
[2018-12-10] MEDS ORDERED: RT-ALBUTEROL/IPRATROPIUM 3 ML (DUONEB) VIAL IH SCH (08:00)
[2018-12-10] MEDS ORDERED: RT-ADVAIR HFA 115/21 MCG PER PUFF IH SCH (08:00)
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
[2018-12-10] MEDS ORDERED: PANTOPRAZOLE 40 MG (PROTONIX) TAB PO SCH (09:00)
[2018-12-10] MEDS ORDERED: APIXABAN 5 MG (ELIQUIS) TABLET PO SCH (09:00)
[2018-12-10] MEDS ORDERED: ALPRAZolam 0.5 MG (XANAX) TAB PO SCH (09:00)
[2018-12-10] MEDS ORDERED: LORATADINE (CLARITIN) 10 MG TAB PO SCH (09:00)
[2018-12-10] MEDS ORDERED: hydrALAZINE (APRESOLINE) 25 MG TAB PO SCH (09:00)
[2018-12-10] MEDS ORDERED: ZYRTEC 10 MG PO SCH (09:00)
[2018-12-10] MEDS ORDERED: RAMIPRIL 5 MG (ALTACE) CAP PO SCH (09:00)
[2018-12-10] MEDS ORDERED: APIX5TAB PO (09:35)
[2018-12-10] MEDS ORDERED: ALBU2.5V4 NEB (09:35)
[2018-12-10] MEDS ORDERED: RAMI10CA69 PO (09:35)
[2018-12-10] MEDS ORDERED: HYDR-3923 PO (09:35)
[2018-12-10] MEDS ORDERED: FURO40TA4 PO (09:35)
[2018-12-10] MEDS ORDERED: ONDA4TAB10 PO (09:35)
[2018-12-10] MEDS ORDERED: IBUP-30 PO (09:36)
[2018-12-10] MEDS ORDERED: SODI50SP2 NS (09:37)
--- NOTE | 2018-12-10 09:43 | NUR ---
WENT OVER THE EXT MED HX WITH THE PATIENT AND SHE VERIFIED HOW SHE TAKES EVERYTHING. SHE ALSO LISTED HER OTC MEDS. SHE IS NO LONGER TAKING THE FOLLOWING MEDICATIONS THAT HAVE BEEN FILLED ACCORDING TO THE EXT MED HX: TOPROL- STOPPED NORVASC- STOPPED DYAZIDE- STOPPED CARDURA- STOPPED
[2018-12-10] MEDS ORDERED: ACET325C5 PO (10:01)
[2018-12-10] MEDS ORDERED: HYDR-3924 PO (10:01)
--- NOTE | 2018-12-10 10:02 | Discharge Inst-Cardiology ---
Discharge Inst-Cardiac Discharge Medications New Medications: Acetaminophen (Tylenol) 325 Mg Capsule 650 MG PO Q6H PRN for PAIN-MILD TO MODERATE, #50 CAP 3 Refills Hydralazine HCl (Hydralazine HCl) 50 Mg Tablet 50 MG PO Q8H, #90 TAB 5 Refills Continued Medications: Albuterol Sulfate (Proair Hfa) 1 Puff Puff 2 PUFF IH Q4H PRN for SHORTNESS OF BREATH, INHALER Albuterol Sulfate (Albuterol Sulfate) 2.5 Mg/3 Ml Vial.neb 2.5 MG NEB Q6H PRN for SHORTNESS OF BREATH, EA Alprazolam (Alprazolam) 0.5 Mg Tablet 0.5 MG PO BID, TAB Apixaban (Eliquis) 5 Mg Tablet 5 MG PO BID, TAB Budesonide/Formoterol Fumarate (Symbicort 160-4.5 Mcg Inhaler) 10.2 Gm Hfa.aer.ad 2 PUFF IH BID, INHALER Cetirizine HCl (Cetirizine HCl) 10 Mg Tablet 10 MG PO DAILY, TAB Fluticasone Propionate (Flonase Allergy Relief) 9.9 Ml [place].susp 2 SPRAY NS DAILY PRN for CONGESTION, EACH Furosemide (Furosemide) 40 Mg Tablet 40 MG PO DAILY PRN for SWELLING, TAB Montelukast Sodium (Montelukast Sodium) 10 Mg Tablet 10 MG PO HS, TAB Ondansetron HCl (Ondansetron HCl) 4 Mg Tablet 4 MG PO TID PRN for NAUSEA/VOMITING-1ST LINE, TAB Pantoprazole Sodium (Pantoprazole Sodium) 40 Mg Tablet.dr 40 MG PO BID, TAB Ramipril (Ramipril) 10 Mg Capsule 10 MG PO HS, CAP Sodium Chloride ([place]) 50 Ml [place] 2 SPRAY NS DAILY PRN for DRY NOSE, SPRAY Tiotropium [place] (Spiriva Respimat 1.25MCG/ACTUATION) 4 Gm Mist.inhal 1 PUFF IH BID, EA Trazodone HCl (Trazodone HCl) 50 Mg Tablet 100 MG PO HS, TAB TAKES 2 (50MG) TABLETS Discontinued Medications: Hydralazine HCl (Hydralazine HCl) 25 Mg Tablet 25 MG PO TID, TAB Ibuprofen (Advil) 200 Mg Tablet 400 MG PO BID PRN for PAIN-MILD, TAB Patient Instructions Patient Instructions: F/u with Dr Snyder next week PHYLLIS SNYDER MD FACP FAC CCDS December 10, 2018 10:02
[2018-12-10] MEDS ORDERED: traZODone 50 MG (DESYREL) TAB PO SCH (21:00)
[2018-12-10] MEDS ORDERED: MONTELUKAST 10 MG (SINGULAIR) TAB PO SCH (21:00)
== END 2018-12-10 11:27 | disposition home or self-care (01) ==
LOC: INTOOBSV 22:13 → ICU 22:13
PROVIDERS: ADMIT Internal Medicine; ATTEND Internal Medicine
DX: I12.9 Hypertensive chronic kidney disease with stage 1 through stage 4 chronic kidney disease, or unspecified chronic kidney disease (principal); N18.3 Chronic kidney disease, stage 3 (moderate); I48.0 Paroxysmal atrial fibrillation; R09.02 Hypoxemia; R06.83 Snoring; I65.23 Occlusion and stenosis of bilateral carotid arteries; E66.9 Obesity, unspecified; J42 Unspecified chronic bronchitis; Z86.73 Personal history of transient ischemic attack (TIA), and cerebral infarction without residual deficits; Z79.899 Other long term (current) drug therapy
CPT/HCPCS: 70496; 94640; 99211

== ENCOUNTER 2019-11-15 07:51 | Day surgery (SDC) | payer MEDICARE, OTHER ==
[~2019-11-15] VITALS: Ht 154.9 cm; Wt 95.0 kg
[2019-11-15] VITALS (11 sets, daily range): BP systolic 122–145; BP diastolic 49–82
[~2019-11-15 07:51] MED LIST changes: +ACET325C7 PO; +ALBU2.5V4 NEB; +APIX5TAB PO; +HYDR-34 PO; -HYDR-3816 PO; +HYDR-3923 PO; +HYDR-3924 PO; +IBUP-30 PO; -MONT10TA24 PO; +MONT10TA26 PO; +ONDA-105 PO; +RAMI10CA69 PO; +SODI50SP2 NS; -TRAZ-189 PO; +TRZ50T PO
--- OUTSIDE RECORDS SUMMARY | 2019-11-15 07:55 | XMS REPORT | Clinical Summary ---
Author Author [facility] Organization [facility] Address Unknown Phone Unavailable Care Team Providers Care Traffic Checker Name Role Phone MarshallZulma Olson MD Unavailable David Jovel MD PCP Source Comments Some departments are not documenting in the electronic medical record. If you d o not see the information that you expected, contact Release of Information in [facility] [employer] Information Management department at [phone] for further assistan ce in locating additional records.[facility] Allergies Comments Active Allergy Reactions Severity Noted Date Aspirin-Dipyridamole ANAPHYLAXIS High 5 Clarithromycin ANAPHYLAXIS High 04/27/2015 Prochlorperazine ANAPHYLAXIS High [...] Used Never Smoker Smokeless Tobacco: Never Used Drinks/Week oz/Week Comments Alcohol Use No Sex Assigned at Date Recorded Not on file Industry Job Start Date Occupation Not on file Not on file Not on file Travel End Travel History Travel Start No recent travel history available. Last Filed Vital Signs Reading Time Taken Comments Vital Sign 106/61 05/01/2015 1:03 PM CDT Blood Pressure 81 05/01/2015 1:03 PM CDT Pulse 36.7 C (98 F) 05/01/2015 1:03 PM CDT Temperature 16 05/01/2015 1:03 PM CDT Respiratory Rate 95% 05/01/2015 1:03 PM CDT RA Oxygen Saturation - - Inhaled Oxygen Concentration 96.8 kg (213 lb 6.4 oz) 05/01/2015 1:03 PM CDT Weight 154.9 cm (5' 1") 05/01/2015 1:03 PM CDT Height 40.32 05/01/2015 1:03 PM CDT Body Mass Index Plan of Treatment Health Maintenance Due Date Last Done Comments MEDICARE ANNUAL WELLNESS 1942 VISIT DTAP/TDAP VACCINES (1 - 1953 Tdap) HEPATITIS C SCREENING 1960 PHYSICAL (COMPREHENSIVE) 1960 EXAM SHINGLES RECOMBINANT 1992 VACCINE (1 of 2) OSTEOPOROSIS 12/21/2007 SCREENING/MONITORING PNEUMONIA (PCV13/PPSV23) 12/21/2007 VACCINES (1 of 2 - PCV13) INFLUENZA VACCINE 03/03/2020 Results Not on filefrom Last 3 Months Insurance Type Payer Benefit Subscriber ID Effective Phone Address Plan / Dates Group Medicare MEDICARE MEDICARE xxxxxxxxxx 2007-P PART A AND resent B HMO xxxxxxxxxxx 2011- FOR LIFE Present [id number] Advance Directives Patient Account Contact Associate Explanation Type Date Recorded Advance 02/19/2015 10:40 AM Directive/DPOA
--- OUTSIDE RECORDS SUMMARY | 2019-11-15 07:56 | XMS REPORT | CCD ---
Author Author DoD Organization DoD Address Unknown Phone Unavailable Care Team Providers Care Political Theory Professor Name Role Phone Unavailable Unavailable Allergies and Adverse Reactions (C-CDA) Substance Reaction Effective Time Source This section is an empty allergy results section. History Of Immunizations (C-CDA) Vaccine Series # Dosage Date Administered By Drug Equipment Validation Specialist Lot Number CVX Code Refusal Reason This section is an empty immunization se ction. There are multiple immunizations systems within the [facility] ([facility]). All immunizations and exemptions/refusals for this patient that are stored in the [facility]'s Clinical Data Repository (CDR) are included here, but this list is empty. Medications (C-CDA) Product Name RouteOfAdministra tion Timing Qty Order Date Order Qty Status Start Date Expiration Date Last Dispensed Date Discontinued Date Source Dosage ALPRAZOLAM (ALPRAZOLAM), 0.5MG, TABLET, ORAL, ACTAVIS ELIZABE, 1000 ea. BOTTLE [id number] 60 Active [id number] [facility] [address] [place] [address] Formulary Units ALPRAZOLAM (ALPRAZOLAM), 0.5MG, TABLET, ORAL, ACTAVIS ELIZABE, 1000 ea. BOTTLE [id number] 30 Active [id number] [facility] [address] [place] [address] Formulary Units TOPIRAMATE (TOPIRAMATE), 25 MG, TABLET, ORAL, GSMS, IN C., 1000 ea. BOTTLE [id number] 180 Active [id number] [facility] [address] [place] [address] Formulary Units CEPHALEXIN (CEPHALEXIN MONOHYDRATE), 500 MG, CAPSULE, ORAL, AUROBINDO PHARM, 500 ea. BOTTLE [id number] 30 Active [id number] [facility] [address] [place] [address] Formulary Units AMOXICILLIN-CLAVULANATE POTASS (amoxicil gerardo/potassium clavulanate), 500-125 MG, TABLET, ORAL, [facility] [place],, 100 ea. BOTTLE 2019 [id number] 20 Active [id number] [facility] [address] Formulary Units ALTACE (RAMIPRIL), 10MG, CAPSULE, ORAL, MONARCH PHRM, 100 ea . BOTTLE [id number] 90 Active [id number] [facility] [address] [place] [address] Formulary Units ALTACE (RAMIPRIL), 10MG, CAPSULE, ORAL, MONARCH PHRM, 100 ea . BOTTLE [id number] 90 Active [id number] [facility] [address] [place] [address] Formulary Units ONDANSETRON HCL (ONDANSETRON HCL), 4MG, TABLET, ORAL, AUROBINDO PHARM, 30 ea. BOTTLE [id number] 60 Active [id number] [facility] [address] [place] [address] Formulary Units ONDANSETRON HCL (ONDANSETRON HCL), 4MG, TABLET, ORAL, AUROBINDO PHARM, 30 ea. BOTTLE [id number] 60 Active [id number] [facility] [address] Formulary Units TRAZODONE HCL (TRAZODONE HCL), 50 MG, TABLET, ORAL, AV JERRY, 1000 ea. BOTTLE [id number] 180 Active [id number] [facility] [address] [place] [address] Formulary Units TRAZODONE HCL (trazodone HCl), 50 MG, TA BLET, ORAL, ZYDUS PHARMACEU, 1000 ea. BOTTLE [id number] 60 Active [id number] [facility] [address] Formulary Units ONDANSETRON HCL (ondansetron HCl), 4 MG, TABLET, ORAL, RISING PHARM, 30 ea. BOTTLE [id number] 30 Active [id number] [facility] [address] Formulary Units ALPRAZOLAM (ALPRAZOLAM), 0.5MG, TABLET, ORAL, ACTAVIS ELIZABE, 1000 ea. BOTTLE [id number] 90 Active [id number] [facility] [address] [place] [address] Formulary Units ALPRAZOLAM (ALPRAZOLAM), 0.5MG, TABLET, ORAL, ACTAVIS ELIZABE, 1000 ea. BOTTLE [id number] 90 Active [id number] [facility] [address] [place] [address] Formulary Units ALPRAZOLAM (ALPRAZOLAM), 0.5MG, TABLET, ORAL, ACTAVIS ELIZABE, 1000 ea. BOTTLE [id number] 90 Active [id number] [facility] [address] [place] [address] Formulary Units ALPRAZOLAM (ALPRAZOLAM), 0.5MG, TABLET, ORAL, ACTAVIS ELIZABE, 1000 ea. BOTTLE [id number] 90 Active [id number] [facility] [address] [place] [address] Formulary Units ALPRAZOLAM (ALPRAZOLAM), 0.5MG, TABLET, ORAL, MICKIE PHARMACEUT, 1000 ea. BOTTLE [id number] 60 Active [id number] [facility] [address] [place] [address] Formulary Units PROAIR HFA (ALBUTEROL SULFATE), 90 MCG, HFA AER AD, INHALATION, TEVA SPECIALTY, 8.5 g CANISTER [id number] 8.5 Active [id number] [facility] [address] [place] [address] Formulary Units PROAIR HFA (ALBUTEROL SULFATE), 90 MCG, HFA AER AD, INHALATION, TEVA SPECIALTY, 8.5 g CANISTER [id number] 8.5 Active [id number] [facility] [address] [place] [address] Formulary Units SPIRIVA RESPIMAT (tiotropium bromide), 1 .25 MCG, MIST INHAL, INHALATION, BOEHRINGER ING., 4 g AER W/ADAP [id number] 12 Active [id number] [facility] [address] [place] [address] Formulary Units SPIRIVA RESPIMAT (tiotropium bromide), 1 .25 MCG, MIST INHAL, INHALATION, BOEHRINGER ING., 4 g AER W/ADAP [id number] 12 Active [id number] [facility] [address] [place] [address] Formulary Units ALPRAZOLAM (ALPRAZOLAM), 0.5MG, TABLET, ORAL, MICKIE PHARMACEUT, 1000 ea. BOTTLE [id number] 60 Active [id number] [facility] [address] [place] [address] Formulary Units ALTACE (RAMIPRIL), 10MG, CAPSULE, ORAL, MONARCH PHRM, 100 ea . BOTTLE [id number] 90 Active [id number] [facility] [address] Formulary Units ELIQUIS (APIXABAN), 5 MG, TABLET, ORAL, BMS PRIMARYCARE, 60 ea. BOTTLE [id number] 180 Active [id number] [facility] [address] [place] [address] Formulary Units HYDRALAZINE HCL (HYDRALAZINE HCL), 25 MG , TABLET, ORAL, STRIDES PHARMA, 1000 ea. BOTTLE [id number] 180 Active [id number] [facility] [address] [place] [address] Formulary Units HYDRALAZINE HCL (hydralazine HCl), 25 MG , TABLET, ORAL, EXELAN PHARMACE, 100 ea. BOTTLE [id number] 180 Active [id number] [facility] [address] [place] [address] Formulary Units PANTOPRAZOLE SODIUM (pantoprazole sodium ), 40 MG, TABLET DR, ORAL, AMNEAL PHARMACE, 90 ea. BOTTLE [id number] 180 Active [id number] [facility] Se [facility] [address] [place] [address] Formulary Units PANTOPRAZOLE SODIUM (pantoprazole sodium ), 40 MG, TABLET DR, ORAL, AMNEAL PHARMACE, 90 ea. BOTTLE [id number] 180 Active [id number] [facility] [address] [place] [address] Formulary Units ALPRAZOLAM (ALPRAZOLAM), 0.5MG, TABLET, ORAL, MICKIE PHARMACEUT, 1000 ea. BOTTLE [id number] 60 Active [id number] [facility] [address] [place] [address] Formulary Units SYMBICORT (BUDESONIDE/FORMOTEROL FUMARAT E), 160-4.5MCG, HFA AER AD, INHALATION, ASTRAZENECA, 10.2 g AER W/ADAP [id number] 30.6 Active [id number] [facility] [address] [place] [address] Formulary Units SYMBICORT (BUDESONIDE/FORMOTEROL FUMARAT E), 160-4.5MCG, HFA AER AD, INHALATION, ASTRAZENECA, 10.2 g AER W/ADAP [id number] 30.6 Active [id number] [facility] [address] Formulary Units SYMBICORT (BUDESONIDE/FORMOTEROL FUMARAT E), 160-4.5MCG, HFA AER AD, INHALATION, ASTRAZENECA, 10.2 g AER W/ADAP [id number] 30.6 Active [id number] [facility] [address] [place] [address] Formulary Units MONTELUKAST SODIUM (MONTELUKAST SODIUM), 10 MG, TABLET, ORAL, AVKARE, 90 ea. BOTTLE [id number] 90 Active [id number] [facility] [address] [place] [address] Formulary Units MONTELUKAST SODIUM (MONTELUKAST SODIUM), 10 MG, TABLET, ORAL, AVKARE, 90 ea. BOTTLE [id number] 90 Active [id number] [facility] [address] [place] [address] Formulary Units MONTELUKAST SODIUM (MONTELUKAST SODIUM), 10 MG, TABLET, ORAL, AVKARE, 90 ea. BOTTLE [id number] 90 Active [id number] [facility] [address] Formulary Units RAMIPRIL (ramipril), 10 MG, CAPSULE, ORAL, RISING PHAR M, 100 ea. BOTTLE [id number] 90 Active [id number] [facility] [address] [place] [address] Formulary Units TOPIRAMATE (TOPIRAMATE), 25 MG, TABLET, ORAL, SUN PHARMA GLOB, 500 ea. BOTTLE [id number] 180 Active [id number] [facility] [address] [place] [address] Formulary Units TOPIRAMATE (TOPIRAMATE), 25 MG, TABLET, ORAL, SUN PHARMA GLOB, 500 ea. BOTTLE [id number] 180 Active [id number] [facility] [address] [place] [address] Formulary Units TRAZODONE HCL (TRAZODONE HCL), 50 MG, TABLET, ORAL, AV JERRY, 1000 ea. BOTTLE [id number] 60 Active [id number] [facility] [address] [place] [address] Formulary Units TOPIRAMATE (TOPIRAMATE), 25 MG, TABLET, ORAL, SUN PHARMA GLOB, 500 ea. BOTTLE [id number] 30 Active [id number] [facility] [address] [place] [address] Formulary Units TOPIRAMATE (TOPIRAMATE), 25 MG, TABLET, ORAL, GSMS, IN C., 1000 ea. BOTTLE [id number] 30 Active [id number] [facility] [address] [place] [address] Formulary Units TOPIRAMATE (TOPIRAMATE), 25 MG, TABLET, ORAL, GSMS, IN C., 1000 ea. BOTTLE [id number] 30 Active [id number] [facility] [address] [place] [address] Formulary Units ALPRAZOLAM (ALPRAZOLAM), 0.5MG, TABLET, ORAL, MICKIE PHARMACEUT, 1000 ea. BOTTLE [id number] 60 Active [id number] [facility] [address] [place] [address] Formulary Units ALPRAZOLAM (ALPRAZOLAM), 0.5MG, TABLET, ORAL, MICKIE PHARMACEUT, 1000 ea. BOTTLE [id number] 60 Active [id number] [facility] [address] [place] [address] Formulary Units CETIRIZINE HCL (cetirizine HCl), 10 MG, TABLET, ORAL, MAJOR PHARMACEU, 90 ea. BOTTLE [id number] 90 Active [id number] [facility] [address] [place] [address] Formulary Units CETIRIZINE HCL (cetirizine HCl), 10 MG, TABLET, ORAL, MAJOR PHARMACEU, 90 ea. BOTTLE [id number] 90 Active [id number] [facility] [address] [place] [address] Formulary Units PANTOPRAZOLE SODIUM (PANTOPRAZOLE SODIUM ), 40 MG, TABLET DR, ORAL, TORRENT PHARMAC, 90 ea. BOTTLE [id number] 180 Active [id number] [facility] [address] [place] [address] Formulary Units PREDNISONE (PREDNISONE), 10MG, TABLET, O RAL, CADISTA PHARMAC, 1000 ea. BOTTLE [id number] 42 Active [id number] [facility] [address] [place] [address] Formulary Units ALPRAZOLAM (ALPRAZOLAM), 0.5MG, TABLET, ORAL, MICKIE PHARMACEUT, 1000 ea. BOTTLE [id number] 60 Active [id number] [facility] Formulary Units ALPRAZOLAM (ALPRAZOLAM), 0.5MG, TABLET, ORAL, MICKIE PHARMACEUT, 1000 ea. BOTTLE [id number] 60 Active [id number] [facility] [address] [place] [address] Formulary Units PANTOPRAZOLE SODIUM (PANTOPRAZOLE SODIUM ), 40 MG, TABLET DR, ORAL, TORRENT PHARMAC, 90 ea. BOTTLE [id number] 180 Active [id number] [facility] [address] Formulary Units HYDRALAZINE HCL (HYDRALAZINE HCL), 25 MG , TABLET, ORAL, STRIDES PHARMA, 1000 ea. BOTTLE [id number] 60 Active [id number] [facility] [address] Formulary Units HYDRALAZINE HCL (HYDRALAZINE HCL), 25 MG , TABLET, ORAL, STRIDES PHARMA, 1000 ea. BOTTLE [id number] 60 Active [id number] [facility] [address] Formulary Units HYDRALAZINE HCL (HYDRALAZINE HCL), 25 MG , TABLET, ORAL, STRIDES PHARMA, 1000 ea. BOTTLE [id number] 60 Active [id number] [facility] [address] [place] [address] Formulary Units TRAZODONE HCL (TRAZODONE HCL), 50MG, TAB LET, ORAL, PLIVA, INC, 1000 ea. BOTTLE [id number] 60 Active [id number] [facility] [address] [place] [address] Formulary Units DOXAZOSIN MESYLATE (DOXAZOSIN MESYLATE), 1MG, TABLET, ORAL, APOTEX CARLEY, 100 ea. BOTTLE [id number] 60 Active [id number] [facility] [address] Formulary Units LEVOFLOXACIN (LEVOFLOXACIN), 500 MG, TAB LET, ORAL, AUROBINDO PHARM, 50 ea. BOTTLE [id number] 7 Active [id number] [facility] [address] [place] [address] Formulary Units ALPRAZOLAM (ALPRAZOLAM), 0.5MG, TABLET, ORAL, MICKIE PHARMACEUT, 1000 ea. BOTTLE [id number] 60 Active [id number] [facility] [address] [place] [address] Formulary Units ONDANSETRON HCL (ondansetron HCl), 4 MG, TABLET, ORAL, RISING PHARM, 30 ea. BOTTLE [id number] 30 Active [id number] [facility] [address] Formulary Units This section includes all outpatient medications ordered within the last 15 months. Problem List (C-CDA) Name Status Onset Date Chronicity Code Source This section is an empty problems section. Procedures (C-CDA) Date/Time Procedure Type Provider Procedure Comment This section is an empty procedures section. Diagnostic tests and laboratory results (C-CDA) Collection Date/Time Order/Hobbs el Test Result Ref Range Interpretation Source Order Comment Result Comment Result Interpretation Comment Specimen This section is an empty lab results sec tion. This section includes all laboratory results (except microbiology and pathology) for the past 15 months up to a maximum of 50 results panels. Vitals (C-CDA) Collection Date/Time Test Result Site Method Source This section is an empty vitals section This section is an empty vitals section. This section includes information documenting the patient's vital signs for the past 15 months up to a maximum of 50 sets. Height and weight values may have been measured or stated by the patient. History of encounters (C-CDA) Date/Time Encounter Type Reason for Visit Provider Disposition Source This section is an empty appointments/ad missions. This section is an empty appointments/admissions. This section includes appointments/admissions for the past 280 months. Insurance providers (C-CDA) Plan Type Plan Name Group No Source Relation to Subscriber This section is an empty insurance secti on. This section contains current third-alliance party (non-) insurance information as known by the Department of Defense. This information is empty. Social History (C-CDA) Tobacco Table Date/Time Provider Tobacco Use What type of tobacco product? Would you like to quit? Amount of tobacco used per day/duration? This section is an empty social history section. No Information Plan of Care (C-CDA) This section is an empty plan of care section. No Information Instructions (C-CDA) This section is an empty Instructions section. No Information Functional Status (C-CDA) This section is an empty functional status section. No Information
[2019-11-15] MEDS ORDERED: NS IV 1000 ML 1,000 ML ONE (08:00)
[2019-11-15] MEDS ORDERED: LIDOCAINE 1% INJ 20 ML 20 ML VIAL ONE (08:00)
[2019-11-15] MEDS ORDERED: HEParin (CATH LAB) 2,000 ML IV ONE (08:00)
[2019-11-15] MEDS ORDERED: NS IV 1000 ML 1,000 ML IV SCH ×3 (08:00→10:15)
[2019-11-15 08:38] LABS: HEMOGLOBIN 12.8 G/DL (11.5-16.0); MEAN PLATELET VOLUME 9.9 FL (7.4-10.4); RED CELL DISTRIBUTION WIDTH 14.6 % (10.0-14.5); WHITE BLOOD COUNT 5.6 10^3/uL (4.3-11.0)
[2019-11-15 08:50] LABS: INR 0.9 (0.8-1.4); PROTHROMBIN TIME PATIENT 12.8 SEC (12.2-14.7)
[2019-11-15] MEDS ORDERED: HYDR-3923 PO (08:50)
[2019-11-15] MEDS ORDERED: TPR25T PO (08:55)
[2019-11-15 08:56] LABS: ALBUMIN 4.1 GM/DL (3.2-4.5); BILIRUBIN,TOTAL 0.4 MG/DL (0.1-1.0); CALCIUM 8.8 MG/DL (8.5-10.1); CREATININE SERUM 1.12 MG/DL (0.60-1.30); POTASSIUM 4.3 MMOL/L (3.6-5.0); TOTAL PROTEIN 6.9 GM/DL (6.4-8.2)
[2019-11-15] MEDS ORDERED: MIDAZOLAM 5 MG/5 ML (VERSED) VIAL ONE (09:12)
[2019-11-15] MEDS ORDERED: fentaNYL INJECTION 100 MCG/2 ML AMP ONE (09:12)
[2019-11-15] MEDS ORDERED: ONDANSETRON 4 MG/2 ML (SDV) Z0FRAN ONE (09:28)
--- NOTE | 2019-11-15 09:57 | Cardiac Procedure Note-CS/ASA ---
Pre-Procedure Note Pre-Op Procedure Note H&P Reviewed The H&P was reviewed, patient examined and no changes noted. Date H&P Reviewed: Nov 15, 2019 Time H&P Reviewed: 09:30 Conscious Sedation Pre-Proced Time 09:30 ASA Score 3 For ASA 3 and 4: Consider anesthesia and medical clearance. Also, for patients with a history of failed moderate sedation consider anesthesia. Airway Lungs Heart ASA score ASA 1: a normal healthy patient ASA 2: a patient with a mild systemic disease (mid diabetes, controlled hypertension, obesity ASA 3: a patient with a severe systemic disease that limits activity (angina, COPD, prior Myocardial infarction) ASA 4: a patient with an incapacitating disease that is a constant threat to life (CHF, renal failure) ASA 5: a moribund patient not expected to survive 24 hrs. (ruptured aneurysm) ASA 6: a declared brain- patient whose organs are being harvested. For emergent operations, add the letter E after the classification Mallampati Classification Grade 2 Sedation Plan Analgesia, Amnesia, Plan communicated to team members, Discussed options with patient/fam, Discussed risks with patient/fam The patient is an appropriate candidate to undergo the planned procedure, sedation, and anesthesia. The patient immediately re-assessed prior to indication. PHYLLIS DENNEY MD FACP FAC CCDS Nov 15, 2019 09:57
[2019-11-15] MEDS ORDERED: PATIENT MAY USE OWN MEDS, ALL PO SCH (10:15)
[2019-11-15] MEDS ORDERED: FLEC50TA PO (10:21)
--- NOTE | 2019-11-15 10:23 | Discharge Inst-Post CATH ---
Discharge Inst-CATH/EP Post Cardiac Cath/EP D/C Inst Follow Up/Plan F/u with Dr Snyder in 2 weeks ACTIVITY * Go Home directly and rest. * Limit activity of the leg (or wrist if it was used) for 7 days including aerobics, swimming, jogging, bicycling, etc. * Restrict stair-climbing for 7 days if possible, if not, climb up with your n on-cath leg, then bring together on the same step. * Avoid lifting, pushing, pulling or excessive movement of the affected ex tremity for 7 days. * Customary sexual activity may be resumed after 2 days-use caution not to use a position that strains or causes pain to the affected extremity. * No driving for 24 hours. * NO SMOKING. * Avoid straining for bowel movements for 7 days. * Gentle walking on level ground is allowed. * Returning to work will depend on the type of procedure and the results. Your doctor will discuss this with you. CALL YOUR DOCTOR FOR ANY OF THE FOLLOWING: *If bleeding from the puncture site occurs- Apply gentle pressure to site with clean cloth and call your doctor or EMS. * If a knot or lump forms under the skin, increases in size, or causes pain. * If bruising appears to be worsening or moving further down your leg instead of disappearing. * Temperature above 101 F. CARE OF YOUR GROIN INCISION; * Bruising or purple discoloration of the skin near the puncture site is common. * You may shower only, no bathtub bathing for 5 days. Be careful to avoid slipping as your leg may feel stiff. * If a closure device was used on your femoral artery, please see the attached guide regarding care of the device and your leg. * Leave dressing on FOR 24 hours. CARE OF YOUR WRIST INCISION; * Bruising or purple discoloration of the skin near the puncture site is common. * You may shower. * DO NOT submerge wrist. * Leave dressing on FOR 24 hours. PHYLLIS SNYDER MD FACP FAC CCDS Nov 15, 2019 10:23
--- NOTE | 2019-11-15 10:23 | Discharge Inst-Cardiology ---
Discharge Inst-Cardiac Discharge Medications New Medications: Flecainide Acetate (Flecainide Acetate) 50 Mg Tablet 50 MG PO BID for 30 Days, #60 TAB 3 Refills Continued Medications: Acetaminophen (Tylenol) 325 Mg Capsule 650 MG PO Q6H PRN for PAIN-MILD TO MODERATE, #50 CAP 3 Refills Albuterol Sulfate (Proair Hfa) 1 Puff Puff 2 PUFF IH Q4H PRN for SHORTNESS OF BREATH, INHALER Albuterol Sulfate (Albuterol Sulfate) 2.5 Mg/3 Ml Vial.neb 2.5 MG NEB Q6H PRN for SHORTNESS OF BREATH, EA Alprazolam (Alprazolam) 0.5 Mg Tablet 0.5 MG PO TID, TAB Apixaban (Eliquis) 5 Mg Tablet 5 MG PO BID, TAB Budesonide/Formoterol Fumarate (Symbicort 160-4.5 Mcg Inhaler) 10.2 Gm Hfa.aer.ad 2 PUFF IH BID, INHALER Cetirizine HCl (Cetirizine HCl) 10 Mg Tablet 10 MG PO DAILY, TAB Fluticasone Propionate (Flonase Allergy Relief) 9.9 Ml Byram.susp 2 SPRAY NS DAILY PRN for CONGESTION, EACH Hydralazine HCl (Hydralazine HCl) 25 Mg Tablet 25 MG PO BID, TAB Montelukast Sodium (Montelukast Sodium) 10 Mg Tablet 10 MG PO HS, TAB Pantoprazole Sodium (Pantoprazole Sodium) 40 Mg Tablet.dr 40 MG PO BID, TAB Ramipril (Ramipril) 10 Mg Capsule 10 MG PO HS, CAP Sodium Chloride ([place]) 50 Ml Byram 2 SPRAY NS DAILY PRN for DRY NOSE, SPRAY Tiotropium [place] (Spiriva Respimat 1.25MCG/ACTUATION) 4 Gm Mist.inhal 1 PUFF IH BID, EA Topiramate (Topamax) 25 Mg Tablet 25 MG PO BID PRN for PAIN-MODERATE (5-7), TAB Trazodone HCl (Trazodone HCl) 50 Mg Tablet 100 MG PO HS, TAB TAKES 2 (50MG) TABLETS Discontinued Medications: Ondansetron HCl (Ondansetron HCl) 4 Mg Tablet 4 MG PO TID PRN for NAUSEA/VOMITING-1ST LINE, TAB PHYLLIS DENNEY MD FACP FAC CCDS Nov 15, 2019 10:23
--- NOTE | 2019-11-15 10:49 | CARDIAC CATHETERIZATION ---
DATE OF SERVICE: 11/15/2019 CARDIAC CATHETERIZATION REPORT The patient is a 78-year-old lady, who has been experiencing palpitations. Implantable loop recorder has shown paroxysmal atrial fibrillation with a somewhat rapid ventricular response at times. She had one episode of wide complex tachycardia (18 beats), which appeared to be atrial fibrillation with aberrant conduction, but ventricular tachycardia could not be excluded. Accordingly, we recommended cardiac catheterization for evaluation. This was discussed with her in detail. It is also discussed with her daughter in detail. Informed consent was obtained. DESCRIPTION OF PROCEDURE: She was brought to the cardiac catheterization laboratory in a fasting state. Right groin was prepared and draped in the usual sterile fashion. Lidocaine 1% was used for local anesthesia. Modified Seldinger technique was used to advance a 5-[place]ian sheath in right femoral artery. Angiography of the right femoral artery was carried out through the sheath. A 5-[place] Lucian JL4 catheter was used for left coronary angiography, 5-[place]ian JR4 catheter was used for right coronary angiography, 5-[place]ian pigtail catheter was used for left heart catheterization and left ventricular angiography. The catheter was removed. Mynx was used to achieve hemostasis. She tolerated the procedure well. HEMODYNAMICS: Left ventricular end-diastolic pressure following coronary angiography was 10 mmHg. There is no significant pressure gradient on pullback across the aortic valve. Ascending aortic pressure was 116/59 with a mean of 86 mmHg. CORONARY ANGIOGRAPHY: Left main coronary artery does not exhibit any significant disease. Left anterior descending artery has mild plaques consisting of 20% to 30% mid vessel stenosis and approximately 30% ostial stenosis of a small caliber first diagonal. Left circumflex and right coronary arteries do not exhibit any significant disease. Right coronary artery is dominant. LEFT VENTRICULAR ANGIOGRAPHY: Left ventricular angiography was carried out in the right anterior oblique projection. Global left ventricular systolic function is normal. No regional wall motion abnormality is seen. Left ventricular ejection fraction is approximately 65%. CONCLUSIONS: 1. Angiographically mild coronary artery disease. 2. Normal global left ventricular systolic function with an ejection fraction of 60 to 65%. 3. Normal left ventricular end-diastolic pressure. DISCUSSION AND RECOMMENDATIONS: Based on results of the study, it appears appropriate to continue a conservative approach. Jamie is being continued for stroke prophylaxis. Because she has intermittent atrial fibrillation from which she is symptomatic, we recommend therapy. Rate-controlling agents do not appear appropriate because she has also had some pauses of up to 3 seconds (albeit asymptomatic) when on beta blockers. Given that she does not have any significant coronary artery disease and that the left ventricular systolic function is normal, we think it would be reasonable to initiate therapy with flecainide to prevent atrial fibrillation. The pros and cons have been discussed with her and her daughter in detail. They agree. We will initiate treatment and I have advised close outpatient followup. Job ID: [id number] DocumentID: [id number] Dictated Date: 11/15/2019 10:11:35 Lawn Technician Date: 11/15/2019 10:48:42 Dictated By: PHYLLIS DENNEY MD, MA, FACP, FACC,
== END 2019-11-15 13:36 | disposition home or self-care (01) ==
LOC: CATH 07:51 → SDC 10:25 → CATH 13:36
PROVIDERS: ATTEND Internal Medicine Cardiovascular Disease
DX: I48.0 Paroxysmal atrial fibrillation (principal); I12.0 Hypertensive chronic kidney disease with stage 5 chronic kidney disease or end stage renal disease; N18.3 Chronic kidney disease, stage 3 (moderate); G43.909 Migraine, unspecified, not intractable, without status migrainosus; E66.9 Obesity, unspecified; Z68.39 Body mass index [BMI] 39.0-39.9, adult; Z88.1 Allergy status to other antibiotic agents; Z88.8 Allergy status to other drugs, medicaments and biological substances; Z88.6 Allergy status to analgesic agent; Z79.01 Long term (current) use of anticoagulants; Z79.899 Other long term (current) drug therapy; Z86.73 Personal history of transient ischemic attack (TIA), and cerebral infarction without residual deficits; Z90.49 Acquired absence of other specified parts of digestive tract
CPT/HCPCS: 36415; 80053; 80061; 85027; 85610; 85730; 87081; 93458

== ENCOUNTER → 2020-03-08 | Outpatient (CLI) | payer MEDICARE, OTHER ==
[~2020-03-08] MED LIST changes: +FLEC50TA PO; +TPR25T PO
--- NOTE | 2020-03-08 14:23 | Diagnostic Imaging Report ---
INDICATION: Protocol for MRI with a pacemaker, pre-MRI screening COMPARISON: 12/13/2019 TECHNIQUE: Single frontal radiograph of the chest dated 03/08/2020. FINDINGS: Interval placement of a pacemaker with the battery pack overlying left chest. Loop recorder is present overlying left heart border. No pneumothorax. The cardiac silhouette is within normal limits in size. No significant pulmonary vascular congestion. Improved aeration of the lungs with improved though persistent bibasilar predominantly interstitial opacities. No large volume pleural effusion. No pneumothorax. No acute osseous abnormality. IMPRESSION: Interval placement of a pacemaker with the battery pack overlying left chest without pneumothorax. Improved aeration of the lungs with improved though persistent bibasilar atelectasis and/or pneumonitis. Dictated by: Dictated on workstation # [id number]
--- NOTE | 2020-03-08 16:04 | Diagnostic Imaging Report ---
PROCEDURE: MR imaging of the brain without contrast. TECHNIQUE: Multiplanar, multisequence MR imaging of the brain was performed without contrast. INDICATION: Vision problems. Concern for stroke. COMPARISON: CTA head on 12/09/2018. FINDINGS: Subacute ischemia is visualized involving the posterior right temporal lobe and right occipital and parietal lobes in the right [place] distribution. There is also a small amount of involvement in the posterior right thalamus. A component of subacute hemorrhage is seen in the right occipital lobe. No midline shift or mass effect is seen. No other areas of ischemia are seen. Additional areas of chronic microvascular disease is seen in the periventricular and subcortical white matter. There is slight prominence of the temporal horn of the right lateral ventricle. There is flattening of the pituitary. The brainstem and posterior fossa are unremarkable. The paranasal sinuses and mastoid air cells demonstrate normal signal characteristics. The globes and orbits are symmetric and unremarkable. The scalp and calvarium have a normal appearance. IMPRESSION: 1. Subacute ischemia in the right [place] distribution. A component of hemorrhage is present in the right occipital lobe. No midline shift or mass effect is seen. Consider follow-up head CT in two months to reevaluate. 2. Chronic microvascular disease in the periventricular and subcortical white matter. Findings were discussed with Dr. Selena Kelly at 03:45 p.m. on 03/08/[address] Simon Charles. Dictated by: Dictated on workstation # [id number]
== END ==
LOC: RAD 14:00
PROVIDERS: ATTEND Internal Medicine
DX: I63.9 Cerebral infarction, unspecified (principal); Z95.0 Presence of cardiac pacemaker
CPT/HCPCS: 70551; 71045

== ENCOUNTER 2020-06-20 05:33 | Outpatient (RCR) | payer MEDICARE, OTHER ==
[~2020-06-20] VITALS: Ht 154.9 cm; Wt 82.3 kg
[~2020-06-20 05:33] MED LIST changes: -MONT10TA26 PO; +MONT10TA32 PO; -PANT40TA3 PO; +PANT40TA52 PO; +STL80T PO; +VERA80TA4 PO
== END 2020-09-17 ==
LOC: PREOP 05:33
PROVIDERS: ATTEND Specialist
DX: Z01.812 Encounter for preprocedural laboratory examination (principal); H25.9 Unspecified age-related cataract; Z53.9 Procedure and treatment not carried out, unspecified reason